=== PATIENT | male | born 1940 | race Caucasian/White ===

== ENCOUNTER → 2016-05-14 | Outpatient (CLI) | payer OTHER | LOC: BHFA 16:00 | PROVIDERS: ATTEND Internal Medicine Cardiovascular Disease | DX: R07.9 Chest pain, unspecified (principal) ==

== ENCOUNTER 2017-02-05 12:08 | Day surgery (SDC) | payer OTHER ==
[2017-02-05] MEDS ORDERED: MIDAZOLAM 2 MG/2 ML VIAL ONE (12:54)
[2017-02-05] MEDS ORDERED: ALBUTEROL 3 ML DEYVIAL ONE (12:54)
[2017-02-05] MEDS ORDERED: LIDOCAINE 1% 300 MG/30 ML SDV ONE (12:54)
[2017-02-05] MEDS ORDERED: fentaNYL 100 MCG/2 ML INJ ONE (12:55)
[2017-02-05] MEDS ORDERED: LIDOCAINE 2% JELLY 5 ML TUBE ONE (12:55)
--- NOTE | 2017-02-05 13:02 | PDPROPOC ---
Sedation Plan of Care Sedation Plan of Care: vital signs stable, mental status noted, patient educated of risks, benefits, alternatives, patient can tolerate sedation ASA Classification: ASA 2 Planned drugs: fentanyl, midazolam Mallampati Score: Class 2 Mallampati Reference Image: Patient passed 3-3-2 rule?: Yes
[2017-02-05 13:03] VITALS: PULSE 67; TEMP 97.3
[2017-02-05] MEDS ORDERED: NS 500 ML IV ONE (13:09)
--- NOTE | 2017-02-05 13:40 | BVPULMO ---
[facility]- Pulmonology Patient Name: Reggie Swann Procedure Date: 02/05/2017 1:27 PM Patient Type: Outpatient Attending MD/ER Physician: Baron Knight MD Procedure: Bronchoscopy Indications: Throat pain Providers: Baron Knight MD Medicines: Lidocaine 4% via nebulizer with Albuterol 2.5 mg, Fentanyl 100 mcg IV, Midazola m 4 mg IV, Lidocaine 1% applied to cords 1 mL, Lidocaine 1% subglottic space 3 mL, Oxygen 5 L/min Complications: No immediate complications. Estimated blood loss: None Procedure: After informed consent, a time out was performed. N95 masks were worn, and the procedure was done in a negative pressure room. The patient was given appropria te topical anesthesia and intravenous sedation. The fiberopic bronchoscope was pas sed via a bite block orally into the larynx and subsequently into the lower trachea bronchial tree. Throughout the procedure, the patient's blood pressure, pulse, and oxygen saturations were monitored continuously. The Bronchoscope (Video) was introduced through the mouth and advanced to the tracheobronchial tree of both lungs. The procedure was accomplished without difficulty. The patient tolerated the procedure well. The total duration of the procedure was 15 minutes. Findings: The oropharynx appears normal. The larynx appears normal. The vocal cords appea r normal. The subglottic space is normal. The trachea is of normal caliber. The c chandler is sharp. The tracheobronchial tree was examined to at least the first subsegme ntal level. Bronchial mucosa and anatomy are normal; there are no endobronchial lesi ons, and no secretions. Post Op Diagnosis: - The examination was normal. - No specimens collected. - The examination was normal. Estimated Blood Loss: Estimated blood loss: none. Recommendation: - Follow up with primary physician in 1-2 weeks. Baron nKight MD Baron Knight MD 02/05/2017 1:39:49 PM This report has been signed electronicallyThomas MD Eugene Number of Addenda: 0 Note Initiated On: 02/05/2017 1:27 PM [email or web address]}
--- NOTE | 2017-02-05 13:40 | BVPULMO ---
[facility]- Pulmonology Patient Name: Reggie Swann Procedure Date: 02/05/2017 1:27 PM Patient Type: Outpatient Attending MD/ER Physician: Baron Knight MD Procedure: Bronchoscopy Indications: Throat pain Providers: Baron Knight MD Medicines: Lidocaine 4% via nebulizer with Albuterol 2.5 mg, Fentanyl 100 mcg IV, Midazola m 4 mg IV, Lidocaine 1% applied to cords 1 mL, Lidocaine 1% subglottic space 3 mL, Oxygen 5 L/min Complications: No immediate complications. Estimated blood loss: None Procedure: After informed consent, a time out was performed. N95 masks were worn, and the procedure was done in a negative pressure room. The patient was given appropria te topical anesthesia and intravenous sedation. The fiberopic bronchoscope was pas sed via a bite block orally into the larynx and subsequently into the lower trachea bronchial tree. Throughout the procedure, the patient's blood pressure, pulse, and oxygen saturations were monitored continuously. The Bronchoscope (Video) was introduced through the mouth and advanced to the tracheobronchial tree of both lungs. The procedure was accomplished without difficulty. The patient tolerated the procedure well. The total duration of the procedure was 15 minutes. Findings: The oropharynx appears normal. The larynx appears normal. The vocal cords appea r normal. The subglottic space is normal. The trachea is of normal caliber. The c chandler is sharp. The tracheobronchial tree was examined to at least the first subsegme ntal level. Bronchial mucosa and anatomy are normal; there are no endobronchial lesi ons, and no secretions. Post Op Diagnosis: - The examination was normal. - No specimens collected. - The examination was normal. Estimated Blood Loss: Estimated blood loss: none. Recommendation: - Follow up with primary physician in 1-2 weeks. Baron Knight MD Baron Knight MD 02/05/2017 1:39:49 PM This report has been signed electronicallyThomas MD Eugene Number of Addenda: 0 Note Initiated On: 02/05/2017 1:27 PM [email or web address]
--- NOTE | 2017-02-05 13:41 | POSTOPPROG ---
Post Op Note Date of Operation: 02/05/17 Surgeon: Baron Knight Anesthesia: IV Sedation Pre-op Diagnosis: Throat pain Post-op Diagnosis: Throat pain Findings: Normal airways and trachea Inf/Abcess present in the surg proc area at time of surgery?: No EBL: Minimal Complications: none
[2017-02-05 15:40] VITALS: BP 115/67; RESP 14; O2SAT 93
== END 2017-02-05 15:21 | disposition home or self-care (01) ==
LOC: FSGY 12:08
PROVIDERS: ATTEND Internal Medicine Pulmonary Disease
PROC: 0BJ08ZZ Inspection of Tracheobronchial Tree, Via Natural or Artificial Opening Endoscopic (ICD-10-PCS; principal; 2017-02-05 13:00)
DX: R07.0 Pain in throat (principal); K22.70 Barrett's esophagus without dysplasia
CPT/HCPCS: J2250; J3010

== ENCOUNTER → 2017-02-26 | Outpatient (CLI) | payer OTHER | LOC: FIMAGING 10:52 | PROVIDERS: ATTEND Family Medicine | DX: M79.604 Pain in right leg (principal); W11.XXXD Fall on and from ladder, subsequent encounter ==

== ENCOUNTER → 2017-03-22 | Outpatient (CLI) | payer OTHER | LOC: BHFA 09:30 | PROVIDERS: ATTEND Internal Medicine Cardiovascular Disease | DX: R94.31 Abnormal electrocardiogram [ECG] [EKG] (principal) | CPT/HCPCS: 78452; 93017; A9500 ==

== ENCOUNTER → 2017-09-02 | Outpatient (CLI) | payer OTHER | LOC: BHFA 14:00 | PROVIDERS: ATTEND Internal Medicine Cardiovascular Disease | DX: R00.2 Palpitations (principal) ==

== ENCOUNTER → 2017-09-03 | Outpatient (CLI) | payer OTHER ==
[~2017-09-03] MED LIST: IOPAMIDOL (ISOVUE 370) 100 ML BTL IV ONE
== END ==
LOC: FIMAGING 12:53
PROVIDERS: ATTEND Internal Medicine Cardiovascular Disease
DX: R00.2 Palpitations (principal); N28.1 Cyst of kidney, acquired
CPT/HCPCS: 71275; 74174; Q9967

== ENCOUNTER → 2017-09-21 | Outpatient (CLI) | payer OTHER | LOC: BHFA 11:00 | PROVIDERS: ATTEND Internal Medicine Cardiovascular Disease | DX: R06.02 Shortness of breath (principal); R00.2 Palpitations; R42 Dizziness and giddiness; R53.83 Other fatigue ==

== ENCOUNTER → 2017-09-23 | Outpatient (CLI) | payer OTHER | LOC: BHFA 16:00 | PROVIDERS: ATTEND Internal Medicine Cardiovascular Disease | DX: R00.2 Palpitations (principal) ==

== ENCOUNTER → 2018-01-14 | Outpatient (CLI) | payer OTHER | LOC: BHFA 13:00 | PROVIDERS: ATTEND Internal Medicine Cardiovascular Disease | DX: I49.3 Ventricular premature depolarization (principal) ==

== ENCOUNTER 2018-02-08 08:42 | Observation (INO) | payer OTHER ==
[2018-02-08] MEDS ORDERED: LR 1,000 ML IV ONE (08:58)
[2018-02-08] MEDS ORDERED: cefOXitin SODIUM 2 GM in NS 100 ML IV ONE (09:42)
--- NOTE | 2018-02-08 09:43 | PDHPUP ---
History & Physical Update H&P update statement: This history and physical update is based on an assessment of the patient which was completed after admission or registration (within 24 hours), but prior to the surgery/procedure. H&P update: H&P reviewed & patient examined, no change in patient's condition since H&P completed
[2018-02-08] MEDS ORDERED: BUPIVACAINE 0.5% 30 ML SDV ONE (09:55)
[2018-02-08] MEDS ORDERED: fentaNYL 100 MCG/2 ML INJ ONE ×2 (10:05→12:53)
[2018-02-08] MEDS ORDERED: PROPOFOL 200 MG/20 ML VIAL ONE (10:05)
--- NOTE | 2018-02-08 10:07 | PDANEPAE ---
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 LT BBB - Pulmonary History Hx COPD: No Hx Asthma/Reactive Airway Disease: No Hx Recent Upper Respiratory Infection: No Hx Oxygen in Use at Home: No Hx Sleep Apnea: Yes Sleep Apnea Screening Result - Last Documented: Positive Pulmonary History Comment: ronna positive UNABLE TO TOLERATE cpap - Neurologic History Hx Cerebrovascular Accident: No Hx Seizures: No Hx Dementia: No Neurologic History Comment: chronic headaches - Endocrine History Hx Diabetes: No - Renal History Hx Renal Disorders: No - Liver History Hx Hepatic Disorders: No - Neurological & Psychiatric Hx Hx Neurological and Psychiatric Disorders: Yes Neurological / Psychiatric History Comment: anxiety. DAILY HEADACHES - Cancer History Hx Cancer: No - Congenital Disorder History Hx Congenital Disorders: No - GI History Hx Gastrointestinal Disorders: Yes Gastrointestinal History Comment: reflux. barretts esophagus - Other Health History Other Health History: CERVICAL STENOSIS. FACTOR V LEIDEN. LYME DX 2007. NEUROPATHY ENTIRE BODY - Chronic Pain History Chronic Pain: Yes (headaches) - Surgical History Prior Surgeries: BRONCHOSCOPY 01/26. cervical spinal leak that was repaired. UNKNOWN 2002 ANE Review of Systems Review of Systems: - Exercise capacity Exercise capacity: >=4 METS METS (RN): 6 METS ANE Patient History - Allergies Allergies/Adverse Reactions: No Known Allergies Allergy (Verified 02/03/17 13:58) - Home Medications Home Medications: DULoxetine [Cymbalta 30 MG (*)] 30 mg PO DAILY 02/03/17 [Last Taken 02/08/18] OLANZapine [ZyPREXA 2.5 mg (*)] 2.5 mg PO HS 02/03/17 [Last Taken 02/07/18] Pregabalin [Lyrica 100mg (*)] 200 mg PO BID 02/03/17 [Last Taken 02/08/18] Acetaminophen [Tylenol 325mg (*)] 650 mg PO Q6 PRN 01/24/18 [Last Taken 02/07/18 ] DULoxetine [Cymbalta 60 MG (*)] 60 mg PO HS 01/24/18 [Last Taken 02/07/18] Rosuvastatin Calcium [Crestor 10mg (RX)] 10 mg PO HS 01/24/18 [Last Taken ] Verapamil ER [Calan SR/ER 180MG (*)] 180 mg PO HS 01/24/18 [Last Taken 02/07/18] clonazePAM [Klonopin (*)] 0.5 mg PO BID PRN 02/08/18 [Last Taken Unknown] - NPO status NPO Status: no food or drink >8 hours NPO Since - Liquids (Date): 02/08/18 NPO Since - Liquids (Time): 07:30 NPO Since - Solids (Date): 02/07/18 NPO Since - Solids (Time): 19:00 - Smoking Hx Smoking Status: Never smoked - Family Anes Hx Family Hx Anesthesia Complications: none ANE Labs/Vital Signs - Vital Signs Blood Pressure: 118/69 Heart Rate: 58 Respiratory Rate: 16 O2 Sat (%): 91 Height: 175.26 cm Weight: 81.647 kg ANE Physical Exam - Airway Neck exam: FROM Mallampati Score: Class 2 Mouth exam: normal dental/mouth exam - Pulmonary Pulmonary: clear to auscultation - Cardiovascular Cardiovascular: regular rate and rhythym - ASA Status ASA Status: II, III
[2018-02-08] MEDS ORDERED: DEXAMETHASONE 4 MG/ML VIAL ONE ×3 (10:38)
[2018-02-08] MEDS ORDERED: LIDOCAINE 2% 2 ML INJ ONE ×2 (10:47)
[2018-02-08] MEDS ORDERED: ROCURONIUM 50 MG/5 ML VIAL ONE (11:25)
[2018-02-08] MEDS ORDERED: PROMETHAZINE HCL 25 MG/ML INJ IVP PRN (11:29)
[2018-02-08] MEDS ORDERED: NALOXONE HCL 0.4 MG/ML INJ IVP PRN (11:29)
[2018-02-08] MEDS ORDERED: ONDANSETRON 4 MG/2 ML VIAL IVP PRN ×2 (11:29→12:06)
[2018-02-08] MEDS ORDERED: LABETALOL HCL 5 MG/ML 20 ML MDV IVP PRN (11:29)
[2018-02-08] MEDS ORDERED: PHENYLEPHRINE HCL 100 MCG/ML SYR ONE (11:34)
[2018-02-08] MEDS ORDERED: ONDANSETRON 4 MG/2 ML VIAL ONE (11:46)
[2018-02-08] MEDS ORDERED: GLYCOPYRROLATE 0.2 MG/1 ML VIAL ONE ×3 (11:50→11:52)
[2018-02-08] MEDS ORDERED: NEOSTIGMINE METHYLSULFATE 5 MG/5 ML SYR ONE (11:50)
--- NOTE | 2018-02-08 12:08 | POSTOPPROG ---
Post Op Note Date of Operation: 02/08/18 Surgeon: Donald Barajas Integration Software Developer: Dr. Lewis Anesthesiologist: Dr. Choudhary Anesthesia: GET(General Endotracheal) Pre-op Diagnosis: GERD Post-op Diagnosis: GERD Procedure: robotic HH repair/fundoplication Inf/Abcess present in the surg proc area at time of surgery?: No EBL: 50-100
[2018-02-08] MEDS ORDERED: SUGAMMADEX SODIUM 200 MG/2 ML VIAL IVP ONE ×3 (12:09→12:46)
[2018-02-08] MEDS: fentaNYL 100 MCG/2 ML INJ IVP PRN ×3 (12:57→13:34)
[2018-02-08] MEDS: OXYCODONE/APAP 5/325 TAB PO PRN ×2 (14:37→20:21)
--- NOTE | 2018-02-09 06:10 | GOP ---
DATE OF OPERATION: 02/08/2018 SURGEON: Andrea Barajas MD GRANULATING MACHINE OPERATOR: Dr. Lewis, whose presence was requested by me and medically necessary for the safe and ti juanjo completion of this case. ANESTHESIA: General endotracheal anesthesia. ANESTHESIOLOGIST: Dr. Choudhary PREOPERATIVE DIAGNOSIS: Gastroesophageal reflux disease with history of King's. POSTOPERATIVE DIAGNOSIS: Gastroesophageal reflux disease with history of King's. PROCEDURE PERFORMED: Robotic hiatal hernia repair and 270 degree fundoplication. FINDINGS: Patient had a 270 degree posterior wrap. No other lesions were identified. ESTIMATED BLOOD LOSS: 50 cc. INDICATIONS: This is a 77-year-old male with a history of reflux. Patient had King's in the past , although his most recent biopsy demonstrated no evidence of King's. Risks and benefits of the p rocedure were discussed the patient, questions were answered and he wished to proceed. DESCRIPTION OF PROCEDURE: The patient was in the supine position initially. After the induction of adequate general endotracheal anesthesia, the patient was moved to the modified lithotomy position. The patient was then prepped and draped in the standard surgical fashion. Marcaine 0.5% was injected throughout the supraumbilical area for local anesthesia. An 8-mm incision was made and the abdominal wall was elevated. A Veress needle was inserted and afte r noting proper pressures, the abdomen was insufflated with carbon dioxide. An 8-mm trocar was place d and a camera followed. There was no apparent damage from trocar placement. Four more ports were p laced, three 8-mm ports in the upper abdomen and one 5-mm port in the right mid abdomen. These were all placed under direct vision after injecting 0.5% Marcaine for local anesthesia. The robot was then docked without difficulty. Robotic instruments were then used to perform the disse ction. The Harmonic scalpel was used to take down the gastrohepatic ligament. Dissection was then c arried over the esophagus exposing the right cinthia. The dissection proceeded laterally and the superi or portion of the esophagus and the left cinthia were exposed. The vagus nerves were seen and preserved throughout the entire case. Next, the posterior window was opened using blunt dissection and the Logan rmonic scalpel. Once this window was achieved, attention was turned to the short gastrics. A significant portion of the short gastric vessels was taken down using a Harmonic scalpel. This tabatha ed up the fundus in its entirety. The mediastinal dissection was then performed. This was carefully performed using blunt dissection and minimal energy component. Once the entire visible portion of t he esophagus was freed and the gastroesophageal junction returned to the abdomen, the repair of the h iatal hernia ensued. Interrupted sutures of 3-0 silk were used to approximate the hiatus posteriorly . Enough room was seen for the esophagus and an instrument tip. The fundus was then brought posteri lucy to the esophagus and the wrap performed. Initial suture took bites of stomach, anterior esophag us, and stomach. Care was taken again to avoid the vagus nerve. Two more sutures of 3-0 silk were u sed to create the wrap inferiorly. This was a loose floppy wrap. No other lesions were identified a t this time. Good hemostasis was noted. The robot was then undocked. Trocars were removed under direct vision. The pneumoperitoneum was all owed to escape. The wounds were thoroughly irrigated. The skin at all sites was closed using 4-0 Mo nocryl in a subcuticular suture. Wounds were sterilely dressed and the patient was returned to the s upine position and extubated. The patient was then taken to the PACU in stable condition. COMPLICATIONS: None. DRAINS: None. COMPLICATIONS: None. DRAINS: None. ADDENDUM: A 270 degree posterior wrap was created. After anchoring the stomach to the diaphragm, connor tures were taken from the stomach to the esophagus on either side anteriorly. Three sutures on each side were used. /[id number]/MODL
[2018-02-09 07:19] VITALS: BP 106/52
[2018-02-09] MEDS: OXYCODONE/APAP 5/325 TAB PO PRN (07:51)
[2018-02-09] MEDS ORDERED: PREGABALIN 100 MG CAP PO ONE (08:45)
--- NOTE | 2018-02-09 08:56 | POSTANESTH ---
Post Anesthetic Evaluation Respiratory Status: Normal, Stable Level of Consciousness/Mental Status: Can Participate in Eval Pain Control: Adequate, Prn Tx Ordered Nausea/Vomiting Control: Adequate, Prn Tx Ordered Complications Possibly Related to Anesthesia: None Noted (This is a late entry for 02/08/18. I was involved with the patient's recovery and assessed him appropriately on that date.)
--- NOTE | 2018-02-09 10:20 | ASMTLACE ---
ABBYE Length of stay for Answers: Less than 1 day current admission Acuity / Level of Answers: No Care: Did the patient have an inpatient admission? Comorbidities - select Answers: Opioid dependence all that apply / Chronic pain Other Notes: Barretts esophagus # of Emergency department Answers: 0 visits in the last 6 months Social determinants Answers: Mental health diagnosis (anxiety, depression, pers onality disorders, etc.) Score: 8 Date Signed: 02/09/2018 10:19 AM Electronically Signed By:Arminda Chew
--- NOTE | 2018-02-09 10:20 | ASMTDCNOTE ---
Case Management Discharge Discharge Order Complete? Answers: Yes Patient to Obtain Answers: via Family Medications Transportation Arranged Answers: Family/Friends Family Notified Answers: Yes Notes: by pt on the phone Discharge Comments Notes: Pt admitted yesterday for Eddie Fundiplication secondary to King's Esophagus. Pt lives independently with Renee. No therapies ordered. Pt comfortable discharging independently. No CM needs noted at this time. Date Signed: 02/09/2018 10:19 AM Electronically Signed By:Arminda Chew
--- NOTE | 2018-02-09 10:34 | ASDISCHSUM ---
Discharge Information Plan Status:Home with No Needs Medically Cleared to Leave:02/09/2018 Discharge Date:02/09/2018 CM D/C Disposition:Home, Routine, Self-Care ADT D/C Disposition:Home, Routine, Self-Care Projected Discharge Date:02/09/2018 Transportation at D/C:Family Discharge Delay Reason: Follow-Up Date:02/09/2018 Discharge Slot: Final Diagnosis:Barretts Esophagus Placement Information Patient Contact Information Contact Name:MARTHA Relationship: Address:[place] City:[place] Alternate Phone: [facility]/Zip Code:[place] [address] Email: Financial Information Financial Class:Medicare Primary Plan Desc:MEDICARE OUTPATIENT Primary Plan Number:[id number] Secondary Plan Desc:[facility] Secondary Plan Number:[id number] Assessment Information LACE LACE Length of stay for Answers: Less than 1 day current admission Acuity / Level of Answers: No Care: Did the patient have an inpatient admission? Comorbidities - select Answers: Opioid dependence all that apply / Chronic pain Other Notes: Tatum pal # of Emergency department Answers: 0 visits in the last 6 months Social determinants Answers: Mental health diagnosis (anxiety, depression, pers onality disorders, etc.) Score: 8 Date Signed: 02/09/2018 10:19 AM Electronically Signed By:Arminda Chew Case Management Discharge Plan Note Case Management Discharge Discharge Order Complete? Answers: Yes Patient to Obtain Answers: via Family Medications Transportation Arranged Answers: Family/Friends Family Notified Answers: Yes Notes: by pt on the phone Discharge Comments Notes: Pt admitted yesterday for Eddie Fundiplication secondary to Fernando's Esophagus. Pt lives independently with Renee. No therapies ordered. Pt comfortable discharging independently. No CM needs noted at this time. Date Signed: 02/09/2018 10:19 AM Electronically Signed By:Arminda Chew Intervention Information
--- NOTE | 2018-02-09 10:36 | SOAPPROG ---
SOAP Progress Note Assessment/Plan: Assessment: s/p fundoplication, doing well. Plan d/c. Plan: 02/09/18 10:35 Subjective: Patient c/o back pain. Denies N/V, heike po. Objective: Vital Signs Temp Pulse Resp BP Pulse Ox 37.1 C 67 16 106/52 L 92 02/09/18 07:17 02/09/18 07:17 02/09/18 07:17 02/09/18 07:17 02/09/18 07:17 02/08/18 02/09/18 02/10/18 05:59 05:59 05:59 Intake Total 2670 350 Output Total 360 Balance 2310 350 Alert, NAD RRR Abd soft, [employer] C/D/I ICD10 Worksheet Patient Problems: Problems Problem Status Onset GERD (gastroesophageal reflux disease) Acute - ICD10 Problem Qualifiers (1) GERD (gastroesophageal reflux disease)
== END 2018-02-09 11:00 | disposition home or self-care (01) ==
LOC: F3N 08:42 → F3E 14:01
PROVIDERS: ADMIT Family Medicine; ATTEND Surgery
DX: K21.9 Gastro-esophageal reflux disease without esophagitis (principal); K22.70 Barrett's esophagus without dysplasia; E78.5 Hyperlipidemia, unspecified; I49.3 Ventricular premature depolarization; D68.51 Activated protein C resistance; G47.33 Obstructive sleep apnea (adult) (pediatric); Z86.19 Personal history of other infectious and parasitic diseases
CPT/HCPCS: 43280; J0694; J1100; J2370; J2405; J2704; J3010; J2710

== ENCOUNTER 2018-02-14 13:07 | Emergency (ER) | payer OTHER ==
--- NOTE | 2018-02-14 13:37 | EDPHY ---
H & P Stated Complaint: constipation/states no stool in 3 weeks/abd pain Time Seen by Provider: 02/14/18 13:36 HPI/ROS: HPI: This is a 77-year-old male who presents with Chief Complaint: constipation/states no stool in 3 weeks/abd pain Location: GI Quality: No bowel movement Duration: 3 weeks Signs and Symptoms: no fever, no nausea, no vomiting, no hematemesis, no blood in stool, + abdominal bloating, no diarrhea, no back pain, no urinary symptoms, no testicular/groin pain, no indigestion, no chest pain, no shortness of breath Timing: Worsening Severity: Moderate Context: Patient reports that he has not had a bowel movement in 3 weeks accompanied by abdominal bloating and generalized abdominal pain. Last week he had a procedure to "repair his sphincter" secondary to King's esophagus by Dr. Barajas. He had been taking Percocet recently. Denies passing flatus, nausea, vomiting, urinary symptoms, back pain. He reports that he is still eating and drinking without any difficulty. Abdominal pain is mild in nature. Described as cramping like. Modifying Factors: None Comment: ROS: A comprehensive 10 system review of systems is otherwise negative aside from elements mentioned in the history of present illness. MEDICAL/SURGICAL/SOCIAL HISTORY: Medical history: King's Esophagus, Lyme Disease (2006), chronic headaches, Factor V Leiden, cervical stenosis, neuropathy generalized, Left bundle branch block and PVCs, TOAN - no CPAP; Surgical history: Denies Social history: Nonsmoker. Family history noncontributory. CONSTITUTIONAL: Polite and cooperative, elderly white male, awake and alert, no obvious distress HEENT: Atraumatic and normocephalic, PERRL, EOMI. Nares patent; no rhinorrhea; no nasal mucosal edema. Tympanic membranes clear. Oropharynx clear, no exudate and moist pink mucosa. Airway patent. No lymphadenopathy. No meningismus. Cardiovascular: Normal S1/S2, regular rate, regular rhythm, without murmur rub or gallop. PULMONARY/CHEST: Symmetrical and nontender. Clear to auscultation bilaterally. Good air movement. No accessory muscle usage. ABDOMEN: Soft, distended, mild generalized tenderness, no rebound, no guarding , no peritoneal signs, no masses or organomegaly. No CVAT. Hypoactive bowel sounds heard x4. EXTREMITIES: 2/2 pulses, strength 5/5, no deformities, no clubbing, no cyanosis or edema. NEUROLOGICAL: no focal neuro deficits. GCS 15. SKIN: Warm and dry, no erythema. no rash. Good capillary refill. Source: Patient Exam Limitations: No limitations - Personal History Current Tetanus Diphtheria and Acellular Pertussis (TDAP): Yes - Medical/Surgical History Hx Asthma: No Hx Chronic Respiratory Disease: No Hx Diabetes: No Hx Cardiac Disease: No Hx Renal Disease: No Hx Cirrhosis: No Hx Alcoholism: No Hx HIV/AIDS: No Hx Splenectomy or Spleen Trauma: No Other PMH: King's Esophagus, Lyme Disease (2005), chronic headaches, Factor V Leiden, cervical stenosis, neuropathy generalized, Left bundle branch block and PVCs, TOAN - no CPAP; - Social History Smoking Status: Never smoked Constitutional: Initial Vital Signs Temperature (C) 36.7 C 02/14/18 13:11 Heart Rate 77 02/14/18 13:11 Respiratory Rate 17 02/14/18 13:11 Blood Pressure 116/72 02/14/18 13:11 O2 Sat (%) 95 02/14/18 13:11 O2 Delivery Mode Room Air Allergies/Adverse Reactions: No Known Allergies Allergy (Verified 02/14/18 13:10) Home Medications: Medication Instructions Recorded DULoxetine [Cymbalta 30 MG (*)] 30 mg PO DAILY 02/03/17 OLANZapine [ZyPREXA 2.5 mg (*)] 2.5 mg PO HS 02/03/17 Pregabalin [Lyrica 100mg (*)] 200 mg PO BID 02/03/17 Acetaminophen [Tylenol 325mg (*)] 650 mg PO Q6 PRN 01/24/18 DULoxetine [Cymbalta 60 MG (*)] 60 mg PO HS 01/24/18 Rosuvastatin Calcium [Crestor] 10 mg PO HS 01/24/18 Verapamil ER [Calan SR/ER 180MG 180 mg PO HS 01/24/18 (*)] clonazePAM [Klonopin (*)] 0.5 mg PO BID PRN 02/08/18 Medical Decision Making ED Course/Re-evaluation: Vital signs reviewed and stable upon arrival. IV access and laboratory studies obtain. CT abdomen and pelvis scan ordered Given 1 L normal saline 1428: Labs reviewed. No signs of leukocytosis/anemia/platelet dysfunction/OSVALDO/ elevated LFTs/electrolyte imbalance/pancreatitis. Creatinine is 1.1 1500: Called by radiologist Dr. Bean, who advised that CT abdomen and pelvis scan shows constipation, sigmoid diverticulosis but no diverticulitis, no bowel obstruction, the recent surgery shows partial wrap of the fundus and stable, kidney lesions noted as recommended repeat renal ultrasound. Given magnesium citrate and a bowel regimen to treat constipation. This patient was seen under the supervision of my secondary supervising physician. I evaluated care for this patient independently. Discussed this patient with Dr. Portillo. Differential Diagnosis: Abdominal pain including but not limited to appendicitis, cholecystitis, gastritis and urinary tract infection. - Data Points Laboratory Results: Laboratory Results 02/14/18 14:00 02/14/18 14:00 02/14/18 02/14/18 02/14/18 14:12 14:00 14:00 WBC 7.00 10^3/uL 10^3/uL (3.80-9.50) RBC 4.96 10^6/uL 10^6/uL (4.40-6.38) Hgb 15.4 g/dL g/dL (13.7-17.5) POC Hgb 15.6 gm/dL gm/dL (13.7-17.5) Hct 45.1 % % (40.0-51.0) POC Hct 46 % % (40-51) MCV 90.9 fL fL (81.5-99.8) MCH 31.0 pg pg (27.9-34.1) MCHC 34.1 g/dL g/dL (32.4-36.7) RDW 13.3 % % (11.5-15.2) Plt Count 178 10^3/uL 10^3/uL (150-400) MPV 12.6 fL H fL (8.7-11.7) Neut % (Auto) 69.6 % % (39.3-74.2) Lymph % (Auto) 16.9 % % (15.0-45.0) [place] % (Auto) 10.4 % % (4.5-13.0) Eos % (Auto) 2.4 % % (0.6-7.6) Baso % (Auto) 0.3 % % (0.3-1.7) Nucleat RBC Rel Count 0.0 % % (0.0-0.2) Absolute Neuts (auto) 4.87 10^3/uL 10^3/uL (1.70-6.50) Absolute Lymphs (auto) 1.18 10^3/uL 10^3/uL (1.00-3.00) Absolute Monos (auto) 0.73 10^3/uL 10^3/uL (0.30-0.80) Absolute Eos (auto) 0.17 10^3/uL 10^3/uL (0.03-0.40) Absolute Basos (auto) 0.02 10^3/uL 10^3/uL (0.02-0.10) Absolute Nucleated RBC 0.00 10^3/uL 10^3/uL (0-0.01) Immature Gran % 0.4 % % (0.0-1.1) Immature Gran # 0.03 10^3/uL 10^3/uL (0.00-0.10) POC Sodium 139 mEq/L mEq/L (135-145) Sodium REJ POC Potassium 4.6 mEq/L mEq/L (3.3-5.0) Potassium TNP POC Chloride 104 mEq/L mEq/L (97-110) Chloride TNP Carbon Dioxide TNP Anion Gap TNP POC BUN 34 mg/dL H mg/dL (7-23) BUN TNP Creatinine TNP POC Creatinine 1.1 mg/dL mg/dL (0.7-1.3) Estimated GFR TNP Glucose TNP POC Glucose 97 mg/dL mg/dL (70-100) Calcium TNP Total Bilirubin TNP Conjugated Bilirubin TNP Unconjugated Bilirubin TNP AST TNP ALT TNP Alkaline Phosphatase TNP Total Protein REJ Albumin TNP Lipase REJ Medications Given: Discontinued Medications Sodium Chloride (Ns) 1,000 mls @ 0 mls/hr IV EDNOW ONE; Wide Open PRN Reason: Protocol Stop: 02/14/18 13:42 Last Admin: 02/14/18 13:57 Dose: 1,000 mls Magnesium Citrate (Magnesium Citrate) 150 ml PO ONCE ONE Stop: 02/14/18 15:18 Last Admin: 02/14/18 15:30 Dose: 150 ml Point of Care Test Results: Chemistry 02/14/18 14:12 POC Sodium 139 mEq/L mEq/L (135-145) POC Potassium 4.6 mEq/L mEq/L (3.3-5.0) POC Chloride 104 mEq/L mEq/L (97-110) POC BUN 34 mg/dL H mg/dL (7-23) POC Creatinine 1.1 mg/dL mg/dL (0.7-1.3) POC Glucose 97 mg/dL mg/dL (70-100) ISTAT H&H 02/14/18 14:12 POC Hgb 15.6 gm/dL gm/dL (13.7-17.5) POC Hct 46 % % (40-51) Departure - Departure Disposition: Home, Routine, Self-Care Clinical Impression: Constipation by delayed colonic transit, Kidney lesion Condition: Good Instructions: Laxative, Stool Softeners (By mouth), Polyethylene Glycol 3350 ( By mouth), Kidney Ultrasound (ED), Kidney Cyst (ED) Additional Instructions: Please take 150 mL of magnesium citrate now. If no bowel movement in 4-6 hours , take the other 150 mL of magnesium citrate. Take MiraLax daily as needed for constipation. Take Colace stool softeners twice a day until having normal bowel movements. Consume a minimum of 8-10 glasses of water or electrolyte fluid replacement drinks that include Gatorade, Powerade, Pedialyte. Eat a bland diet for the next 48 hours and then slowly advance as tolerated. If no bowel movement in the next 3 days, follow-up with primary care provider. CT scan today showed lesions on your kidney. It is recommended that you have a follow-up renal ultrasound performed outpatient to further differentiate. Referrals: Debi Buckner MD [Primary Care Provider] - As per Instructions
[2018-02-14] MEDS ORDERED: NS 1,000 ML IV ONE (13:41)
[2018-02-14 14:11] LABS: PLATELET COUNT 178 10^3/uL (150-400)
[2018-02-14] MEDS ORDERED: IOPAMIDOL (ISOVUE-300) 100 ML BTL ONE (14:21)
[2018-02-14] MEDS ORDERED: MAGNESIUM CITRATE 300 ML BOTTLE PO ONE (15:17)
[2018-02-14 15:36] VITALS: BP 107/68
== END 2018-02-14 15:36 | disposition home or self-care (01) ==
DX: K59.01 Slow transit constipation (principal); N28.9 Disorder of kidney and ureter, unspecified; E86.9 Volume depletion, unspecified
CPT/HCPCS: 74177; 96360; 99285; Q9967; 82435-PO; 82565-PO; 82947-PO; 84132-PO; 84295-PO; 84520-PO; 85014-PO

== ENCOUNTER 2018-04-09 10:57 | Day surgery (SDC) | payer OTHER ==
--- NOTE | 2018-04-09 11:20 | EDPHY ---
HPI/HX/ROS/PE/MDM Narrative: CHIEF COMPLAINT: Sensation of esophageal foreign body HPI: The patient is a 77 y/o male with a history of King's esophagus post fundoplication 2 months ago who complains of the sensation of meat stuck in his throat since last night. He has been unable to drink water without vomiting since last night. He reports several similar episodes since his surgery with Dr. Barajas on 02/08/18 that have resolved without intervention. He has never seen GI for these symptoms. He is not drooling and denies difficulty breathing, fever, or any other symptoms. REVIEW OF SYSTEMS: A comprehensive 10 system review of systems is otherwise negative aside from elements mentioned in the history of present illness. PMH: King's esophagus post fundoplication with Dr. Barajas 02/08/18; GERD SOCIAL HISTORY: Lives in [place]. . Retired. PHYSICAL EXAM: General:Patient is alert, in no acute distress. ENT:Eyes are normal to inspection. ENT inspection normal. Neck: Normal inspection. Full range of motion. Respiratory:No respiratory distress. Breath sounds normal bilaterally. Cardiovascular: Regular rate and rhythm. Strong peripheral pulses. Normal cap refill. Abdomen:The abdomen is nontender to palpation. There are no peritoneal signs. Back: Normal to inspection. No tenderness to palpation. Skin: Normal color. No rash. Warm and dry. Extremities: Normal appearance. Full range of motion. Neuro: Oriented x3. Normal motor function. Normal sensory function. ED Course: Consulted with Dr. Mishra, GI. He will perform endoscopy. MDM: This patient presents with impacted esophageal food bolus, likely related to history of recent fundoplication. He will required endoscopy for removal. No signs of airway compromise or infection. - Data Points Laboratory Results: Laboratory Results 04/09/18 11:45 04/09/18 04/09/18 11:45 11:45 WBC 5.18 10^3/uL 10^3/uL (3.80-9.50) RBC 4.89 10^6/uL 10^6/uL (4.40-6.38) Hgb 15.3 g/dL g/dL (13.7-17.5) Hct 45.8 % % (40.0-51.0) MCV 93.7 fL fL (81.5-99.8) MCH 31.3 pg pg (27.9-34.1) MCHC 33.4 g/dL g/dL (32.4-36.7) RDW 14.6 % % (11.5-15.2) Plt Count 122 10^3/uL L 10^3/uL (150-400) MPV 13.0 fL H fL (8.7-11.7) Neut % (Auto) 59.4 % % (39.3-74.2) Lymph % (Auto) 24.5 % % (15.0-45.0) [place] % (Auto) 11.4 % % (4.5-13.0) Eos % (Auto) 4.1 % % (0.6-7.6) Baso % (Auto) 0.4 % % (0.3-1.7) Nucleat RBC Rel Count 0.0 % % (0.0-0.2) Absolute Neuts (auto) 3.08 10^3/uL 10^3/uL (1.70-6.50) Absolute Lymphs (auto) 1.27 10^3/uL 10^3/uL (1.00-3.00) Absolute Monos (auto) 0.59 10^3/uL 10^3/uL (0.30-0.80) Absolute Eos (auto) 0.21 10^3/uL 10^3/uL (0.03-0.40) Absolute Basos (auto) 0.02 10^3/uL 10^3/uL (0.02-0.10) Absolute Nucleated RBC 0.00 10^3/uL 10^3/uL (0-0.01) Immature Gran % 0.2 % % (0.0-1.1) Immature Gran # 0.01 10^3/uL 10^3/uL (0.00-0.10) Sodium Pending Potassium Pending Chloride Pending Carbon Dioxide Pending Anion Gap Pending BUN Pending Creatinine Pending Estimated GFR Pending Glucose Pending Calcium Pending General Time Seen by Provider: 04/09/18 11:17 Initial Vital Signs: Initial Vital Signs Temperature (C) 36 C 04/09/18 11:18 Heart Rate 54 L 04/09/18 11:18 Respiratory Rate 16 04/09/18 11:18 Blood Pressure 145/92 H 04/09/18 11:18 O2 Sat (%) 95 04/09/18 11:18 O2 Delivery Mode Nasal Cannula O2 (L/minute) 5 Allergies/Adverse Reactions: No Known Allergies Allergy (Verified 02/14/18 13:10) Home Medications: Medication Instructions Recorded DULoxetine [Cymbalta 30 MG (*)] 30 mg PO DAILY 02/03/17 OLANZapine [ZyPREXA 2.5 mg (*)] 2.5 mg PO HS 02/03/17 Pregabalin [Lyrica 100mg (*)] 200 mg PO BID 02/03/17 Acetaminophen [Tylenol 325mg (*)] 650 mg PO Q6 PRN 01/24/18 DULoxetine [Cymbalta 60 MG (*)] 60 mg PO HS 01/24/18 Rosuvastatin Calcium [Crestor] 10 mg PO HS 01/24/18 Verapamil ER [Calan SR/ER 180MG 180 mg PO HS 01/24/18 (*)] clonazePAM [Klonopin (*)] 0.5 mg PO BID PRN 02/08/18 Departure - Departure Disposition: To OP Cath/Surgery Condition: Good Report Scribed for: Blake Portillo Report Scribed by: Elisa Zaldivar Date of Report: 04/09/18 Time of Report: 11:25 Physician Review and Approval Statement: Portions of this note were transcribed by an ED scribe. I personally performed the history, physical exam, and medical decision making; and confirm the accuracy of the information in the transcribed note.
[2018-04-09 11:53] LABS: PLATELET COUNT 122 10^3/uL (150-400)
[2018-04-09] MEDS ORDERED: MIDAZOLAM 2 MG/2 ML VIAL ONE (13:45)
[2018-04-09] MEDS ORDERED: fentaNYL 100 MCG/2 ML INJ ONE (13:45)
--- NOTE | 2018-04-09 14:06 | GIREPORT ---
[facility] Surgical Services - Endoscopy Department Patient Name: Reggie Swann Procedure Date: 04/09/2018 1:38 PM Patient Type: Emergency Department Attending MD/ ER Physician: Jone Cee MD Procedure: Upper GI endoscopy Indications: Foreign body in the esophagus Providers: Jone Cee MD Medicines: Fentanyl 150 micrograms IV, Midazolam 6 mg IV Complications: No immediate complications. Description of Procedure: After obtaining informed consent, the endoscope was passed under direct vision. Throughout the procedure, the patient's blood pressure, pulse, and oxygen saturations were monitored continuously. The Endoscope was intro duced through the mouth, and advanced to the third part of duodenum. The uppe r GI endoscopy was accomplished without difficulty. The patient tolerated th e procedure well. Findings: Food was found in the middle third of the esophagus and in the lower th ird of the esophagus. Removal of food was accomplished. Evidence of a Eddie fundoplication was found in the cardia. The wrap appeared intact. This was traversed. The entire examined stomach was normal. The examined duodenum was normal. Estimated Blood Loss: Estimated blood loss: none. Post Op Diagnosis: - Food in the middle third of the esophagus and in the lower third of t he esophagus. Removal was successful. - A Eddie fundoplication was found. The wrap appears intact. - Normal stomach. - Normal examined duodenum. Recommendation: - Written discharge instructions were provided to the patient. - The signs and symptoms of potential delayed complications were discus sed with the patient. - Patient has a contact number available for emergencies. - Return to normal activities tomorrow. - Resume previous diet. - Repeat upper endoscopy in 4 weeks for surveillance/dilation. Attending Participation: I personally performed the entire procedure. Jone Cee MD Jone Cee MD 04/09/2018 2:06:04 PM This report has been signed electronicallyDaus Coleman MD Number of Addenda: 0 Note Initiated On: 04/09/2018 1:38 PM [email or web address]
[2018-04-09 15:12] VITALS: BP 116/75
--- NOTE | 2018-04-09 17:05 | GCON ---
OUTPATIENT CONSULTATION NOTE REFERRING PHYSICIAN: Dr. Portillo REASON FOR CONSULTATION: Food impaction. Briefly, the patient is a pleasant 77-year-old male, who presented to the emergency room with the inability to swallow. He reports this began after his evening meal the night prior. He is able to rest through the evening but has been unable to tolerate his medications or secretions. Of note, he underwent Eddie fundoplication approximately 2 months ago. This was done in the setting of heartburn complicated by King's esophagus. He reports no nausea or vomiting. He has had no heartburn or indigestion. He reports no abdominal pain or weight loss. He has not had prior episodes of food impaction like this but does admit to previous episodes of difficulty swallowing. He does not recall undergoing any manometric or other evaluation prior to surgery but admits that he may not remember those details well. ALLERGIES: None. OUTPATIENT MEDICATIONS: Include Cymbalta, Zyprexa, Lyrica, Tylenol, calcium, Klonopin, and verapamil. FAMILY HISTORY: no history of stomach cancer SOCIAL HISTORY: He lives in [place]. He is and retired. He does not smoke cigarettes. PAST MEDICAL HISTORY: Includes King's esophagus with fundoplication. COMPLETE 10-SYSTEM REVIEW: Undertaken and is negative except for the positives and negatives detailed in the History of Present Illness. PHYSICAL EXAM: GENERAL: This is a well-developed male in no apparent distress. HEENT: His pupils are equal, round, reactive to light and accommodation. His sclerae are nonicteric. His oropharynx is clear. NECK: Supple without lymphadenopathy. HEART: Regular without murmur. ABDOMEN: Soft , nontender with normoactive bowel sounds. EXTREMITIES: Free of cyanosis, clubbing, and edema. NEURO: Grossly nonfocal. JOINTS: Show no arthritis. SKIN: Warm and dry without lesions. LABORATORY TESTING: Shows a white count of 5.1, hemoglobin of 15.3, hematocrit of 45.8, platelet count of 122. IMPRESSION/RECOMMENDATIONS: The patient has had food impaction for the last almost 18 hours. This has not resolved spontaneously. We will need to perform upper endoscopy to deliver the food impaction. Pending the results of endoscopy , may benefit from subsequent followup endoscopy to assess King's and/or stricture. Esophageal dilation may be useful in the future as well. /[id number]/MODL MTDD
== END 2018-04-09 15:40 | disposition home or self-care (01) ==
LOC: FSGY 13:31
PROVIDERS: ATTEND Internal Medicine Gastroenterology
PROC: 0DC38ZZ Extirpation of Matter from Lower Esophagus, Via Natural or Artificial Opening Endoscopic (ICD-10-PCS; principal; 2018-04-09 13:30)
PROC: 0DC28ZZ Extirpation of Matter from Middle Esophagus, Via Natural or Artificial Opening Endoscopic (ICD-10-PCS; principal; 2018-04-09 13:30)
DX: T18.128A Food in esophagus causing other injury, initial encounter (principal); K22.70 Barrett's esophagus without dysplasia; Z98.890 Other specified postprocedural states
CPT/HCPCS: J2250; J3010

== ENCOUNTER → 2018-04-20 | Outpatient (CLI) | payer OTHER | LOC: BHFA 09:05 | PROVIDERS: ATTEND Internal Medicine Cardiovascular Disease | DX: I49.3 Ventricular premature depolarization (principal) ==

== ENCOUNTER 2018-06-08 11:10 | Observation (INO) | payer OTHER ==
[2018-06-08] MEDS ORDERED: diphenhydrAMINE 25 MG CAP PO ONE (11:35)
[2018-06-08] MEDS ORDERED: DIAZEPAM 5 MG TAB PO ONE (11:35)
[2018-06-08] MEDS ORDERED: FAMOTIDINE 20 MG TAB PO ONE (11:35)
[2018-06-08] MEDS ORDERED: ASPIRIN EC 325 MG TAB PO ONE (11:35)
[2018-06-08] MEDS ORDERED: NS 1,000 ML IV ONE ×2 (11:35)
--- NOTE | 2018-06-08 11:55 | PDGENHP ---
History & Physical Chief Complaint: soa, cp, palpitations Relevant Physical Exam: s1s2 irreg cta ao3 Cardiorespiratory Assessment: for cor angio and pvc ablation
--- NOTE | 2018-06-08 13:10 | PDANEPAE ---
ANE History of Present Illness CAD, PVC ANE Past Medical History - Cardiovascular History Hx Hypertension: No Hx Arrhythmias: Yes Hx Chest Pain: No Hx Coronary Artery / Peripheral Vascular Disease: Yes Hx CHF / Valvular Disease: No Hx Palpitations: Yes Cardiovascular History Comment: PVC'S/PAC'S. LT BBB - Pulmonary History Hx COPD: No Hx Asthma/Reactive Airway Disease: No Hx Recent Upper Respiratory Infection: No Hx Oxygen in Use at Home: No Hx Sleep Apnea: Yes Pulmonary History Comment: ronna positive UNABLE TO TOLERATE cpap - Neurologic History Hx Cerebrovascular Accident: No Hx Seizures: No Hx Dementia: No Neurologic History Comment: chronic headaches - Endocrine History Hx Diabetes: No Hypothyroid: No Hyperthyroid: No Obesity: no - Renal History Hx Renal Disorders: No - Liver History Hx Hepatic Disorders: No - Neurological & Psychiatric Hx Hx Neurological and Psychiatric Disorders: Yes Neurological / Psychiatric History Comment: anxiety. DAILY HEADACHES - Cancer History Hx Cancer: No - Congenital Disorder History Hx Congenital Disorders: No - GI History GERD: moderate Hx Gastrointestinal Disorders: Yes Gastrointestinal History Comment: reflux. barretts esophagus - Other Health History Other Health History: CERVICAL STENOSIS. FACTOR V LEIDEN. LYME DX 2007. NEUROPATHY ENTIRE BODY - Chronic Pain History Chronic Pain: Yes (headaches) - Surgical History Prior Surgeries: BRONCHOSCOPY 01/26. cervical spinal leak that was repaired. UNKNOWN 2002 ANE Review of Systems Review of systems is: negative Review of Systems: ANE Patient History - Allergies Allergies/Adverse Reactions: No Known Allergies Allergy (Verified 02/14/18 13:10) - Home Medications Home medications: home medication list seen and reviewed Home Medications: OLANZapine [ZyPREXA 2.5 mg (*)] 1.25 - 2.5 mg PO HS 02/03/17 [Last Taken 21:00] Pregabalin [Lyrica 100mg (*)] 100 mg PO HS 02/03/17 [Last Taken 06/07/18 21:00] DULoxetine [Cymbalta 60 MG (*)] 60 mg PO BID 01/24/18 [Last Taken 06/08/18 05:00 ] Rosuvastatin Calcium [Crestor] 10 mg PO HS 01/24/18 [Last Taken 06/07/18 21:00] clonazePAM [Klonopin (*)] 0.5 mg PO BID PRN 02/08/18 [Last Taken 06/07/18 12:00] Herbals/Supplements -Info Only 1 ea PO DAILY 06/01/18 [Last Taken 06/08/18 05:00 ] Pregabalin [Lyrica 100mg (*)] 200 mg PO DAILY 06/01/18 [Last Taken 06/08/18 05: 00] Buprenorphine [Butrans 20 mcg/hr] 1 each TD GUILLORY 06/08/18 [Last Taken 06/05/18 08: 00] - NPO status NPO Status: no food or drink >8 hours - Anes Hx Anes Hx: no prior problems - Smoking Hx Smoking Status: Never smoked Marijuana use: No - Alcohol Use Alcohol Use: None - Family Anes Hx Family Anes Hx: none Family Hx Anesthesia Complications: none ANE Labs/Vital Signs - Labs Result Diagrams: 06/08/18 13:05 06/08/18 13:05 ANE Physical Exam - Airway Neck exam: FROM Mallampati Score: Class 2 Mouth exam: normal dental/mouth exam - Pulmonary Pulmonary: no respiratory distress, clear to auscultation - Cardiovascular Cardiovascular: irregularly irregular - ASA Status ASA Status: III ANE Anesthesia Plan Anesthesia Plan: GA with mask Total IV Anesthesia: Yes
[2018-06-08 13:25] LABS: PLATELET COUNT 152 10^3/uL (150-400)
[2018-06-08 13:51] LABS: INR 0.95 (0.83-1.16); PROTIME(PATIENT) 12.3 SEC (12.0-15.0)
[2018-06-08] MEDS ORDERED: BUPIVACAINE 0.75% 10 ML SDV ONE (15:58)
[2018-06-08] MEDS ORDERED: IOHEXOL 350mgI/ML (OMNIPAQUE) 150 ML BTL IV ONE (15:58)
[2018-06-08] MEDS ORDERED: LIDOCAINE 1% 300 MG/30 ML SDV ONE (15:58)
[2018-06-08] MEDS ORDERED: IOPAMIDOL (ISOVUE-300) 100 ML BTL ONE (16:04)
[2018-06-08] MEDS ORDERED: MIDAZOLAM 2 MG/2 ML VIAL IVP ONE (16:05)
[2018-06-08] MEDS ORDERED: PROPOFOL/EMULSION 500 MG/50 ML BOTTLE IV ONE (16:19)
[2018-06-08] MEDS ORDERED: LIDOCAINE 2% 5 ML SDV ONE (16:20)
[2018-06-08] MEDS ORDERED: MIDAZOLAM 2 MG/2 ML VIAL ONE (16:23)
[2018-06-08] MEDS ORDERED: fentaNYL 100 MCG/2 ML INJ ONE (16:23)
--- NOTE | 2018-06-08 17:05 | PDDXCAT ---
Diagnostic Cath Note - . Date: 06/08/18 Intensivist: Santy Indication: Patient w angina/susp CAD, cannot be risk stratified by other means , Class I/II angina, intolerance to med therapy or failure to respond (PVC, chest pain, dyspnea, palpitations, fatigue) - Procedure Access: right groin Procedure: left heart catheterization - Materials Left Heart Cath size: 6F Left Heart Cath materials: JL4.0, JR4.0 - Findings-Left Heart Catheterization LM: Normal LAD: Mild prox and mid disease. 1 principal diagonal LCX: Non dominant, normal RCA: Dominant. Moderate (40%) proximal. Diffuse mild mid disease Ramus: Mild proximal disease - Findings-Right Heart Catheterization AO: 96/62 mmHg, LVEDP 6 mmHg Complications: None Estimated blood loss: <50ml Closure method: Angioseal Assessment: Mild nonobstructive CAD Plan: Plan PVC ablation in2 weeks Intervention: None Patient Problems: Problems Problem Status Onset PVC (premature ventricular contraction) Acute GERD (gastroesophageal reflux disease) Acute
[2018-06-08] MEDS ORDERED: NALOXONE HCL 0.4 MG/ML INJ IVP PRN (17:17)
--- NOTE | 2018-06-08 17:17 | POSTANESTH ---
Post Anesthetic Evaluation Cardiovascular Status: Normal, Stable Respiratory Status: Normal, Stable Level of Consciousness/Mental Status: Can Participate in Eval Pain Control: Adequate, Prn Tx Ordered Nausea/Vomiting Control: Adequate, Prn Tx Ordered Complications Possibly Related to Anesthesia: None Noted
[2018-06-08] MEDS ORDERED: clonazePAM 0.5 MG TAB PO PRN (19:24)
[2018-06-08] MEDS ORDERED: diphenhydrAMINE 25 MG CAP PO PRN (20:07)
[2018-06-08] MEDS ORDERED: OLANZapine 2.5 MG TAB PO SCH (21:00)
[2018-06-08] MEDS ORDERED: PREGABALIN 100 MG CAP PO SCH (21:00)
[2018-06-08] MEDS ORDERED: ROSUVASTATIN CALCIUM 10 MG TAB PO SCH (21:00)
[2018-06-08] MEDS: DULoxetine 60 MG CAP PO SCH (21:34)
[2018-06-09] MEDS: DULoxetine 60 MG CAP PO SCH (08:52)
[2018-06-09] MEDS ORDERED: Herbals/Supplements -Info Only PO SCH (09:00)
[2018-06-09] MEDS ORDERED: PREGABALIN 100 MG CAP PO SCH (09:00)
--- NOTE | 2018-06-09 09:31 | ASDISCHSUM ---
Discharge Information Plan Status:Home with No Needs Medically Cleared to Leave:06/08/2018 Discharge Date:06/08/2018 CM D/C Disposition:Home, Routine, Self-Care ADT D/C Disposition:Home, Routine, Self-Care Projected Discharge Date:06/08/2018 Transportation at D/C:Family Discharge Delay Reason: Follow-Up Date:06/08/2018 Discharge Slot: Final Diagnosis: Placement Information Patient Contact Information Contact Name:MARTHA Relationship: Address:[address] City:[place] Alternate Phone: [facility]/Zip Code:[place] [address] Email: Financial Information Financial Class:Medicare Primary Plan Desc:MEDICARE OUTPATIENT Primary Plan Number:[id number] Secondary Plan Desc:[employer] Secondary Plan Number:[id number] Assessment Information LACE LACE Length of stay for Answers: Less than 1 day current admission Acuity / Level of Answers: No Care: Did the patient have an inpatient admission? Comorbidities - select Answers: Coronary Artery Disease all that apply Opioid dependence / Chronic pain Other Notes: Factor V Leiden # of Emergency department Answers: 1-2 visits in the last 6 months Social determinants Answers: Mental health diagnosis (anxiety, depression, pers onality disorders, etc.) Score: 11 Date Signed: 06/09/2018 09:30 AM Electronically Signed By:Zayda Duran RN Intervention Information
[2018-06-09 10:14] VITALS: BP 103/65
--- NOTE | 2018-06-09 21:38 | GDS ---
[f rep st] DISCHARGE SUMMARY SUPERVISING SERVICE UNIT OPERATOR OIL WELL: Abdon Madera MD ADMISSION DIAGNOSES: 1. High frequency premature ventricular contractions. 2. Dyspnea on exertion. 3. Chest pain. DISCHARGE DIAGNOSES: 1. Nonobstructive coronary artery disease. 2. High frequency premature ventricular contractions. PROCEDURES PERFORMED DURING HOSPITALIZATION: 1. Electrocardiogram. 2. Left heart catheterization. HOSPITAL COURSE: Patient presented 06/08/2018, for left heart catheterization in the setting of persistent dyspnea on exertion and chest discomfort. He underwent left heart catheterization with Dr. Abdon Madera, which demonstrated mild proximal and mid LAD disease, moderate 40% proximal RCA disease with diffuse mild mid disease, and mild proximal ramus disease. He has done very well post procedure and has been ambulating around in his room this morning without issue. He is appropriate and stable for discharge home today. CURRENT PHYSICAL EXAMINATION: GENERAL: He is alert and oriented x4, no apparent distress. VITAL SIGNS: Blood pressure 103/65, heart rate 61, respiratory rate 12, SpO2 94% on room air, temp 36.8 degrees Celsius. RESPIRATORY: Lungs are clear to auscultation without adventitious breath sounds. CARDIAC: Normal S1 and S2. No S3, S4, or murmurs. Rhythm is irregularly irregular. ABDOMEN: Normoactive bowel sounds times all 4 quadrants. No masses or tenderness. ABDOMEN: Soft to palpation. SKIN: [place] , warm, dry without cyanosis, clubbing, or peripheral edema. EXTREMITIES: Right groin access site is clean and dry without evidence of redness, oozing, swelling, hematoma. Pulses are 2+ bilaterally. No edema. LABORATORY STUDIES: Drawn 06/08 demonstrating normal CBC and BMP. PROCEDURES: Left heart catheterization as mentioned above. DISCHARGE DISPOSITION: Patient will be discharged home in stable condition. He is under activity restrictions as below. DISCHARGE MEDICATIONS: Please see discharge medication reconciliation sheet for full details. Please note that patient will continue his statin and his aspirin 81 mg daily. No medication changes have been made during this hospitalization. DISCHARGE INSTRUCTIONS: Post left-heart catheterization instructions reviewed with patient in detail. We discussed activity restrictions including lifting no more than 10 pounds and avoidance of submerged bathing for the next 10 days. We also reviewed bleeding precautions, medication compliance, and monitoring for signs and symptoms of infection. At the time of discharge, patient verbalizes understanding regarding all discharge instructions without questions or concerns. We will schedule him for his PVC ablation within the next few weeks. He will contact our clinic if he experiences any new or concerning symptoms prior to his upcoming procedure. TIME SPENT ON DISCHARGE: Greater than 30 minutes. /[id number]/MODL MTDD
[2018-06-12] MEDS ORDERED: Buprenorphine [Butrans 20 Mcg/Hr] TD SCH (09:00)
--- NOTE | 2018-06-15 11:04 | CPEKG ---
Test Reason : OPEN Blood Pressure : / mmHG Vent. Rate : 058 BPM Atrial Rate : 058 BPM P-R Int : 144 ms QRS Dur : 092 ms QT Int : 415 ms P-R-T Axes : 062 -61 038 degrees QTc Int : 408 ms Sinus rhythm Probable left atrial enlargement Left anterior fascicular block Confirmed by Laci Vaughan ([id number]) on 06/15/2018 11:04:44 AM Referred By: Abdon Madera Confirmed By:Laci Vaughan
== END 2018-06-09 12:05 | disposition home or self-care (01) ==
LOC: FCATH 11:10 → F2W 17:25 → EDLOC 17:25 → F2W 18:35
PROVIDERS: ADMIT Internal Medicine Cardiovascular Disease; ATTEND Internal Medicine Cardiovascular Disease
DX: I49.3 Ventricular premature depolarization (principal); R07.9 Chest pain, unspecified; I25.10 Atherosclerotic heart disease of native coronary artery without angina pectoris; G47.30 Sleep apnea, unspecified; F41.9 Anxiety disorder, unspecified; R51 Headache
CPT/HCPCS: 93458; C1760; J1644; J2250; J2704; J3010; Q9967

== ENCOUNTER → 2018-06-15 | Outpatient (CLI) | payer OTHER | LOC: BHFA 13:30 | PROVIDERS: ATTEND Internal Medicine Cardiovascular Disease | DX: I49.3 Ventricular premature depolarization (principal) ==

== ENCOUNTER 2018-06-21 07:05 | Observation (INO) | payer OTHER ==
[2018-06-21] MEDS ORDERED: NS 1,000 ML IV ONE (07:07)
--- NOTE | 2018-06-21 08:12 | PDGENHP ---
History & Physical Chief Complaint: High-frequency PVCs History of Present Illness: High-frequency PVCs associated with fatigue. Recent coronary angiography demonstrated nonobstructive CAD. Relevant Physical Exam: General: A&Ox4, no apparent distress. Respiratory: CTA. Cardiac: Regular rate and rhythm, PVCs, S1, S2. Extremities: No edema, pulses 2+ bilaterally Cardiorespiratory Assessment: Proceed with PVC ablation as planned for today. Plan to DC home on [facility].
[2018-06-21 08:13] LABS: PLATELET COUNT 134 10^3/uL (150-400)
[2018-06-21] MEDS ORDERED: HEPARIN 10,000 UNIT/10 ML MDV (1,000 UNIT/ML) ONE (08:14)
[2018-06-21] MEDS ORDERED: LIDOCAINE 1% 300 MG/30 ML SDV ONE (08:14)
[2018-06-21] MEDS ORDERED: HEPARIN/DEXTROSE 25,000 UNIT/500 ML BAG ONE (08:15)
[2018-06-21] MEDS ORDERED: ISOPROTERENOL HCL/D5W 0.2 MG/50 ML BAG IV ONE (08:15)
[2018-06-21] MEDS ORDERED: BUPIVACAINE 0.75% 10 ML SDV ONE (08:15)
[2018-06-21 08:17] LABS: INR 0.98 (0.83-1.16); PROTIME(PATIENT) 12.6 SEC (12.0-15.0)
--- NOTE | 2018-06-21 08:18 | PDANEPAE ---
ANE History of Present Illness Symptomatic PVC/APC's ANE Past Medical History - Cardiovascular History Hx Hypertension: No Hx Arrhythmias: Yes Hx Chest Pain: No Hx Coronary Artery / Peripheral Vascular Disease: Yes Hx CHF / Valvular Disease: No Hx Palpitations: Yes Cardiovascular History Comment: PVC'S/PAC'S. LT BBB - Pulmonary History Hx COPD: No Hx Asthma/Reactive Airway Disease: No Hx Recent Upper Respiratory Infection: No Hx Oxygen in Use at Home: No Hx Sleep Apnea: Yes Pulmonary History Comment: ronna positive UNABLE TO TOLERATE cpap - Neurologic History Hx Cerebrovascular Accident: No Hx Seizures: No Hx Dementia: No Neurologic History Comment: chronic headaches - Endocrine History Hx Diabetes: No - Renal History Hx Renal Disorders: No - Liver History Hx Hepatic Disorders: No - Neurological & Psychiatric Hx Hx Neurological and Psychiatric Disorders: Yes Neurological / Psychiatric History Comment: anxiety. DAILY HEADACHES - Cancer History Hx Cancer: No - Congenital Disorder History Hx Congenital Disorders: No - GI History Hx Gastrointestinal Disorders: Yes Gastrointestinal History Comment: reflux. barretts esophagus - Other Health History Other Health History: CERVICAL STENOSIS. FACTOR V LEIDEN. LYME DX 2007. NEUROPATHY ENTIRE BODY - Chronic Pain History Chronic Pain: Yes (headaches) - Surgical History Prior Surgeries: BRONCHOSCOPY 01/26. cervical spinal leak that was repaired. UNKNOWN 2002 ANE Review of Systems Review of Systems: ANE Patient History - Allergies Allergies/Adverse Reactions: No Known Allergies Allergy (Verified 02/14/18 13:10) - Home Medications Home medications: home medication list seen and reviewed Home Medications: OLANZapine [ZyPREXA 2.5 mg (*)] 1.25 - 2.5 mg PO HS 02/03/17 [Last Taken 22:00] Pregabalin [Lyrica 100mg (*)] 100 mg PO DAILY 02/03/17 [Last Taken 06/20/18 08: 00] DULoxetine [Cymbalta 60 MG (*)] 60 mg PO BID 01/24/18 [Last Taken 06/20/18 22:00 ] Rosuvastatin Calcium [Crestor] 10 mg PO HS 01/24/18 [Last Taken 06/20/18 22:00] clonazePAM [Klonopin (*)] 0.5 mg PO BID PRN 02/08/18 [Last Taken 06/20/18 08:00] Pregabalin [Lyrica 100mg (*)] 200 mg PO HS 06/01/18 [Last Taken 06/20/18 22:00] Buprenorphine [Butrans 20 mcg/hr] 1 each TD GUILLORY 06/08/18 [Last Taken 06/19/18 08: 00] - NPO status NPO Status: no food or drink >8 hours - Anes Hx Anes Hx: no prior problems - Smoking Hx Smoking Status: Never smoked - Family Anes Hx Family Hx Anesthesia Complications: none ANE Labs/Vital Signs - Labs Result Diagrams: 06/21/18 07:40 06/21/18 07:40 - Vital Signs Height: 175.2 cm Weight: 80.7 kg ANE Physical Exam - Airway Neck exam: FROM Mallampati Score: Class 2 Mouth exam: normal dental/mouth exam - Pulmonary Pulmonary: no respiratory distress - Cardiovascular Cardiovascular: regular rate and rhythym - ASA Status ASA Status: III ANE Anesthesia Plan Anesthesia Plan: general endotracheal anesthesia (Requestion Propofol only, no gas or narcotics. Plan Prop infusion.)
[2018-06-21] MEDS ORDERED: ROCURONIUM 50 MG/5 ML VIAL ONE ×3 (08:34→12:02)
[2018-06-21] MEDS ORDERED: PROPOFOL/EMULSION 500 MG/50 ML BOTTLE IV ONE ×4 (08:35→12:04)
[2018-06-21] MEDS ORDERED: PROPOFOL 200 MG/20 ML VIAL ONE (08:35)
[2018-06-21] MEDS ORDERED: PHENYLEPHRINE HCL 100 MCG/ML SYR ONE (09:21)
[2018-06-21] MEDS ORDERED: DOPamine/DEXTROSE 400 MG/250 ML BAG IV ONE (10:34)
[2018-06-21] MEDS ORDERED: SUGAMMADEX SODIUM 200 MG/2 ML VIAL IVP ONE (12:12)
[2018-06-21] MEDS ORDERED: PROTAMINE SULFATE 50 MG/5 ML VIAL IVP ONE (12:13)
[2018-06-21] MEDS ORDERED: clonazePAM 0.5 MG TAB PO PRN (12:16)
[2018-06-21] MEDS ORDERED: NALOXONE HCL 0.4 MG/ML INJ IVP PRN (12:43)
[2018-06-21] MEDS ORDERED: fentaNYL 100 MCG/2 ML INJ IVP PRN (12:43)
--- NOTE | 2018-06-21 12:43 | POSTANESTH ---
Post Anesthetic Evaluation Cardiovascular Status: Similar to Pre-Op Cond Respiratory Status: Similar to Pre-op Cond. Level of Consciousness/Mental Status: Alert and Oriented Pain Control: Adequate, Prn Tx Ordered Nausea/Vomiting Control: Adequate, Prn Tx Ordered Complications Possibly Related to Anesthesia: None Noted
[2018-06-21] MEDS ORDERED: DULoxetine 60 MG CAP PO SCH ×2 (14:38→21:00)
--- NOTE | 2018-06-21 15:03 | EPPROC ---
Electrophysiology Procedure Note: ELECTROPHYSIOLOGIC STUDY AND CATHETER MEDIATED ABLATION OF PREMATURE VENTRICULAR BEATS ORIGINATING IN THE PARAHISIAN AREA Procedures performed: 04987-94 EP evaluation with RA/RV/LA pace/record, with arrhythmia induction 89988-36 EP evaluation with RA/RV pace record, insert/reposition catheter, with arrhythmia induction 69156 Intracardiac catheter ablation, VT arrhythmogenic focus Fluoroscopy INDICATION: Recurrent PVC, not controlled with BB or CCB The patient arrived in the Electrophysiology Laboratory in the fasting state. The right clavicular region, right groin, and left groin area were prepped and draped in the usual sterile manner. Appropriate non-invasive blood pressure, pulse oximetry and end-tidal CO2 monitoring was established. Anesthesiologist Dr. Bijal Graham administered propofol sedation. All catheters were placed percutaneously using the modified Seldinger technique , and advanced into position under fluoroscopic guidance. A Jamglue catheter with IVC electrode was placed in RA and RV. Programmed stimulation was performed from the right atrium, right ventricle and CS (left atrium). Parahisian pacing demonstrated all retrograde conduction over the AV node. The patient arrived to the electrophysiology laboratory in normal sinus rhythm with frequent PVC. PVC morphology LBBB superior axis with QRS transition between V2-V3. PVC frequency increased with dopamine. A 4 mm Navistar ablation catheter with a magnetic sensor for the Carto 3D electroanatomic mapping system was used for mapping. RealRiderSound was used to obtain RV and LV and Aortic contours. Mapping (during PVC) of the RV and RVOT showed earliest activation in a parahisian focus, inferior to the His. There was a 96% pace map match and ventricular activation began 30 ms before the onset of the QRS complex with sharp negative deflection in the unipolar electrode. RF application at this site eliminated this PVC. Observation after the application of radiofrequency current was performed during dopamine administration. No spontaneous ventricular extra systoles of the primary pattern seen prior to ablation were induced spontaneously or with ventricular burst pacing. There was a second morphology of PVC seen with QRS transition in V4, early activation was seen proximal to RF#1 site. Ablation at this site showed junctional automaticity and therefore further RF applications were not delivered. The catheters were removed. Protamine was administered. The patient was transferred to the cardiovascular holding area in stable condition. Vascular access sheaths were removed in the holding area. There were no apparent complications. CONCLUSIONS: 1. Premature ventricular beats originating from right side of interventricular septum, parahisian locus. 2. Successful catheter mediated ablation of the premature ventricular beats. 3. Second morphology of PVC seen post ablation of clinical PVC, not ablated due to proximity to AV node. 4. No apparent complications. Patient Problems: Problems Problem Status Onset Coronary artery disease Acute PVC (premature ventricular contraction) Acute GERD (gastroesophageal reflux disease) Acute
[2018-06-21] MEDS ORDERED: PREGABALIN 100 MG CAP PO SCH ×2 (15:30→21:00)
[2018-06-21] MEDS: DULoxetine 60 MG CAP PO SCH ×2 (15:32→21:42)
[2018-06-21] MEDS ORDERED: ACETAMINOPHEN 325 MG TAB PO PRN (18:03)
[2018-06-21] MEDS ORDERED: OLANZapine 2.5 MG TAB PO SCH (21:00)
[2018-06-21] MEDS ORDERED: ROSUVASTATIN CALCIUM 10 MG TAB PO SCH (21:00)
[2018-06-22 05:24] LABS: PLATELET COUNT 109 10^3/uL (150-400)
[2018-06-22 07:50] VITALS: BP 112/73
[2018-06-22] MEDS ORDERED: ASPIRIN 81 MG CHEWABLE TAB PO SCH (09:00)
[2018-06-22] MEDS ORDERED: APIXABAN 5 MG TAB PO SCH (09:00)
[2018-06-22] MEDS ORDERED: PREGABALIN 100 MG CAP PO SCH ×2 (09:00→14:38)
--- NOTE | 2018-06-22 10:13 | ECHO ---
[email or web address] [address] [address] Main: [phone] Echocardiography Examination Transthoracic Name: DEBORAH JEFF MR#: [id number] Study Date: 06/22/2018 Study Time: 08:04 AM Date of : 1940 Age: 78 year(s) Height: 175.3 cm (69 in.) Weight: 80.29 kg (177 lb.) BSA: 1.96 m2 Gender: Male Examination: Echo Contrast: Image Quality: Adequate Rhythm: Normal sinus rhythm Heart Rate: 65 bpm BP: 122 mmHg/73 mmHg Indication: POST EP study Procedure Staff Referring Physician: Inspector Aligning: Jenny Rios [facility] Reading Physician: Abdon Madera MD Requesting Provider: Ordering Physician: Abdon Madera MD Indication: POST EP study Measurements Chambers AV/MV Label Value Normal Value Label Value Normal Value EF upper range (%) 60 % AR PHT 0.71 s IVSd, 2D 1.1 cm (0.6cm - 1.1cm) AR PHT 706 ms LVDd, 2D 4.6 cm (4.2cm - 5.9cm) AR Vena contracta 0.3 cm LVDs, 2D 3 cm (2.1cm - 4cm) AR Vmax 3.5 m/s LVEF, 2D 63 % (54% - 74%) AV PGmax 6 mmHg LVEF, BP 56 % (55% - 70%) AV Vmax, Caliper 1.22 m/s LVOT PGmax 3 mmHg ISIAH (continuity eq. 2.9 cm2 LVOT Vmax 0.86 m/s (0.7m/s - 1.1m/s) Vmax) LVOTd 2.3 cm (1.9cm - 2.1cm) MR Vena Contracta 0.3 cm LVPWd, 2D 1 cm (0.6cm - 1cm) MV A Vmax 0.82 m/s RVDd, 2D 3.3 cm (1.9cm - 3.8cm) MV DT 183 ms TAPSE 2.1 cm MV E' lateral 0.09 m/s LADs, 2D 3.4 cm (3cm - 4cm) MV E' mean 0.08 m/s RA Area 16.4 cm2 MV E' septal 0.08 m/s Additional Vessels MV E Vmax 0.53 m/s Label Value Normal Value MV E/A 0.65 AoAsc 3.4 cm MV E/E' lateral 5.7 AoRoot, 2D 4 cm (1.4cm - 2.6cm) MV E/E' mean 6.24 MV E/E' septal 6.8 (0.45 - 1.25) Patient: DEBORAH JEFF Study Date: 06/22/2018 Page 1 of 3 08:04 AM TV/PV Label Value Normal Value RA Pressure 5 mmHg RVSP 32 mmHg TR Pmax 27 mmHg TR Vmax 2.58 m/s [place] End curry Pablo 0.38 cm/s PV PGmax 3 mmHg PV Vmax, Caliper 0.83 m/s (0.6m/s - 0.9m/s) Conclusions Left Ventricle: Normal global systolic left ventricular function. Left ventricular diastolic function parameters are normal. IAS: The interatrial septum is thin and anuerysmal with no obvious shunt noted by color flow doppler.. Aortic Valve: Mild aortic regurgitation is present. Tricuspid Valve: Moderate tricuspid regurgitation. Aorta: The aortic root exhibits mild dilatation. Findings Left Ventricle: Left ventricle is normal in size. Normal global systolic left ventricular function. EF evaluated by EF (biplane Reza's). The ejection fraction, measured by Simpsons method, is 56 %. The LV wall thickness is at the upper limits of normal. There is no regional wall motion abnormalities. Left ventricular diastolic function parameters are normal. Right Ventricle: Normal size right ventricle. Right ventricular systolic function is normal. Left Atrium: LA volume index BP 32 ml/m2. The left atirum is borderline dilated. IAS: The interatrial septum is thin and anuerysmal with no obvious shunt noted by color flow doppler.. Right Atrium: The right atrium is borderline dilated. Mitral Valve: Mitral valve appears structurally normal. Mild mitral regurgitation. No mitral valve stenosis. There is mild mitral thickening. Aortic Valve: The aortic valve is structurally normal and trileaflet. Mild aortic regurgitation is present. There is no aortic stenosis. Tricuspid Valve: Tricuspid valve leaflets are structurally normal. Moderate tricuspid regurgitation. Right Ventricular systolic pressure is measured at 32 mmHg. Pulmonary artery pressure normal. Pulmonic Valve: Pulmonic leaflets are structurally normal. Aorta: Patient: DEBORAH JEFF Study Date: 06/22/2018 Page 2 of 3 08:04 AM The aortic root size in 2D measures 4.0 cm. The aortic root exhibits mild dilatation. The ascending aorta measures 3.4 cm. Ascending aorta is normal in size. Aorta Measurements AoRoot, 2D is 4.0 cm. IVC: The inferior vena cava is normal in size and course. Pericardium: No pericardial effusion. Exam Details Procedure Ordered: Echo Procedure Status: Routine study Image Quality: Adequate Facility Location: Cardiac Echo 1 (No Signature Object) Patient: DEBORAH JEFF Study Date: 06/22/2018 Page 3 of 3 08:04 AM [id number]
--- NOTE | 2018-06-22 19:31 | GDS ---
[f rep st] DISCHARGE SUMMARY SUPERVISING MAPPING SUPERVISOR: Abdon Madera MD ADMISSION DIAGNOSES: 1. High frequency premature ventricular contractions. 2. Factor V Leiden. DISCHARGE DIAGNOSES: 1. High frequency premature ventricular contractions, status post successful ablation. 2. Factor V Leiden. PROCEDURES PERFORMED DURING HOSPITALIZATION: 1. Electrophysiology study. 2. Electrocardiogram. 3. Echocardiogram. 4. PVC ablation. HOSPITAL COURSE: Patient presented 06/21/2018, for a PVC ablation in the setting of symptomatic very high frequency PVCs, status post recent coronary angiography, which demonstrated nonobstructive cecilio nary artery disease. He underwent successful PVC ablation with Dr. Abdon Madera and had no intra-proce dure complex complications. He continues to have low-frequency unifocal PVCs, which were targeted fo r ablation; however, the origin was close to the AV node and junctional rhythm was induced with attem pted ablation. No recurrence of targeted PVCs post-ablation and telemetry currently demonstrates low -frequency unifocal PVCs from a secondary origin. The patient reports feeling very well overall with improved energy. He has been ambulating around his room this morning without issue and he is approp riate and stable for discharge home today. CURRENT PHYSICAL EXAMINATION: GENERAL: Alert and oriented x4. No apparent distress. VITAL SIGNS: Blood pressure 112/73, heart rate 64, respiratory rate 12, SpO2 92% on room air, temp 36.6 degrees C elsius. RESPIRATORY: Lungs are clear to auscultation without adventitious breath sounds. CARDIAC: Normal S1, S2. No S3, S4, or murmurs. Rhythm is regular. ABDOMEN: Normoactive bowel sounds times all 4 quadrants. No masses or tenderness. Soft to palpation. SKIN: [place], warm, dry without cyano sis, clubbing, or peripheral edema. EXTREMITIES: Bilateral pursestring sutures removed without evid ence of hematoma, redness, oozing, swelling, or warmth. Resolving right groin ecchymosis. Pulses 2+ bilaterally. No edema. LABORATORY STUDIES: Drawn today, CBC and BMP relatively stable compared to preprocedure. Troponin 1 .070, elevated troponin is to be expected in the postprocedure setting. PROCEDURES PERFORMED DURING HOSPITALIZATION: Electrophysiology study and PVC ablation as mentioned a felicia. Postprocedure electrocardiogram this morning demonstrates normal sinus rhythm without new p.r. n. ST or T-wave abnormalities. Preliminary review of echocardiogram this morning demonstrates stable left ventricular systolic function without any wall motion abnormalities. DISCHARGE DISPOSITION: Patient will be discharged home in stable condition. He is under activity re strictions as below. DISCHARGE MEDICATIONS: Please see discharge medication reconciliation sheet for full details. Charbel kelley note, the patient's aspirin will be held for the next 4 weeks and he will start Eliquis for 1 month in light of his Factor V Leiden. DISCHARGE INSTRUCTIONS: Post PVC ablation instructions reviewed with the patient in detail. 1. We discussed activity instructions, including lifting no more than 10 pounds and avoidance submer ged bathing for 10 days. 2. He will get up and walk around every 45 minutes for 45 days. 3. We reviewed bleeding precautions, medication compliance, monitoring for signs and symptoms of inf ection, and monitoring for sustained arrhythmia. At the time of discharge, patient verbalizes his understanding regarding discharge instructions witho ut questions or concerns. He has a followup visit scheduled in the next 3 to 4 weeks, and he will co ntact us with any new or concerning symptoms prior to his upcoming visit. TIME SPENT ON DISCHARGE: Greater than 30 minutes. /[id number]/MODL
--- NOTE | 2018-06-24 18:35 | CPEKG ---
Test Reason : OPEN Blood Pressure : / mmHG Vent. Rate : 058 BPM Atrial Rate : 059 BPM P-R Int : 154 ms QRS Dur : 095 ms QT Int : 406 ms P-R-T Axes : 064 -53 044 degrees QTc Int : 399 ms Sinus rhythm Ventricular premature complex Left anterior fascicular block Confirmed by Rudi Wong ([id number]) on 06/24/2018 6:34:54 PM Referred By: Abdon Madera Confirmed By:Rudi Wong
--- NOTE | 2018-06-24 18:37 | CPEKG ---
Test Reason : OPEN Blood Pressure : / mmHG Vent. Rate : 077 BPM Atrial Rate : 077 BPM P-R Int : 157 ms QRS Dur : 096 ms QT Int : 408 ms P-R-T Axes : 060 -54 039 degrees QTc Int : 462 ms Sinus rhythm Ventricular trigeminy Probable left atrial enlargement Left anterior fascicular block Abnormal R-wave progression Confirmed by Rudi Wong ([id number]) on 06/24/2018 6:36:39 PM Referred By: Abdon Madera Confirmed By:Rudi Wong
--- NOTE | 2018-06-24 18:40 | CPEKG ---
Test Reason : OPEN Blood Pressure : / mmHG Vent. Rate : 068 BPM Atrial Rate : 067 BPM P-R Int : 153 ms QRS Dur : 096 ms QT Int : 403 ms P-R-T Axes : 058 -49 040 degrees QTc Int : 429 ms Sinus rhythm Probable left atrial enlargement Left anterior fascicular block Confirmed by Rudi Wong ([id number]) on 06/24/2018 6:39:30 PM Referred By: Abdon Madera Confirmed By:Rudi Wong
[2018-06-26] MEDS ORDERED: Buprenorphine [Butrans 20 Mcg/Hr] 1 EACH TD SCH (09:00)
== END 2018-06-22 09:45 | disposition home or self-care (01) ==
LOC: FCATH 07:05 → F2W 12:15
PROVIDERS: ADMIT Internal Medicine Cardiovascular Disease; ATTEND Internal Medicine Cardiovascular Disease
PROC: 025K3ZZ Destruction of Right Ventricle, Percutaneous Approach (ICD-10-PCS; principal; 2018-06-21)
PROC: 02573ZZ Destruction of Left Atrium, Percutaneous Approach (ICD-10-PCS; principal; 2018-06-21)
PROC: 02563ZZ Destruction of Right Atrium, Percutaneous Approach (ICD-10-PCS; principal; 2018-06-21)
PROC: 5A1213Z Performance of Cardiac Pacing, Intermittent (ICD-10-PCS; principal; 2018-06-21)
PROC: 4A023FZ Measurement of Cardiac Rhythm, Percutaneous Approach (ICD-10-PCS; principal; 2018-06-21)
DX: I49.3 Ventricular premature depolarization (principal); D68.2 Hereditary deficiency of other clotting factors
CPT/HCPCS: 93005; 93306; 93623; 93654; C1730; C1732; C1766; J1265; J1644; J2370; J2704; J2720

== ENCOUNTER → 2018-07-22 | Outpatient (CLI) | payer OTHER | LOC: BHFA 11:00 | PROVIDERS: ATTEND Internal Medicine Cardiovascular Disease | DX: I49.3 Ventricular premature depolarization (principal) ==

== ENCOUNTER 2018-07-25 13:13 | Inpatient (IN) | payer OTHER ==
[2018-07-25] MEDS ORDERED: NS 1,000 ML IV ONE (13:19)
[2018-07-25] MEDS ORDERED: TRANEXAMIC ACID 1,000 MG in NS 100 ML IV ONE (13:23)
[2018-07-25] MEDS ORDERED: TRANEXAMIC ACID 1,000 MG in NS 500 ML IV ONE (13:23)
[2018-07-25 13:26] LABS: PLATELET COUNT 158 10^3/uL (150-400)
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
[2018-07-25 13:34] LABS: INR 0.91 (0.83-1.16); PROTIME(PATIENT) 11.9 SEC (12.0-15.0)
[2018-07-25] MEDS ORDERED: IOPAMIDOL (ISOVUE-300) 100 ML BTL ONE (13:43)
[2018-07-25] MEDS ORDERED: fentaNYL 100 MCG/2 ML INJ IVP ONE (14:59)
[2018-07-25] MEDS ORDERED: fentaNYL 100 MCG/2 ML INJ ONE (15:01)
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
[2018-07-25] MEDS: HYDROmorphONE/DILAUDID 1 MG/ML INJ IVP PRN ×3 (17:43→23:08)
[2018-07-25] MEDS ORDERED: D5W 1/2 NS 1,000 ML IV SCH (18:30)
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
[2018-07-25] MEDS ORDERED: ONDANSETRON 4 MG/2 ML VIAL IVP PRN (22:26)
[2018-07-25] MEDS ORDERED: clonazePAM 0.5 MG TAB PO PRN (22:30)
[2018-07-26] MEDS: HYDROmorphONE/DILAUDID 1 MG/ML INJ IVP PRN ×4 (02:04→15:54)
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
[2018-07-26 09:07] LABS: PLATELET COUNT 136 10^3/uL (150-400)
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
--- NOTE | 2018-07-26 10:48 | ASMTCMCOM ---
CM Note CM Note Notes: CM met with pt, his and daughter. CM provided education on ICU processes and discharge planning. CM provided support and family was appreciative. Pt continues to be confused. Pt care discussed in rounds, SOFTWARE QUALITY TEST ENGINEER will see today to do Cognitive Eval and Swallow study. Therapies are ordered. Inpt rehab order placed, CM spoke with Dasha from inpt rehab and she is going to be following pt as he engages in therapies and progresses. Family may benefit from family meeting as pt progresses. CM to follow. Plan: TBD Date Signed: 07/26/2018 10:47 AM Electronically Signed By:BUSHRA Rabago
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
[2018-07-26] MEDS: DULoxetine 60 MG CAP PO SCH ×2 (15:35→21:33)
[2018-07-26] MEDS: PREGABALIN 100 MG CAP PO SCH ×2 (15:35→21:33)
[2018-07-26] MEDS: hydrOXYzine HCL 10 MG TAB PO SCH ×3 (15:54→21:33)
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
[2018-07-26] MEDS: OLANZapine 2.5 MG TAB PO SCH (21:33)
[2018-07-27] MEDS: HYDROmorphONE/DILAUDID 1 MG/ML INJ IVP PRN (00:41)
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
[2018-07-27] MEDS: hydrOXYzine HCL 10 MG TAB PO SCH ×2 (10:24→21:43)
[2018-07-27] MEDS: PREGABALIN 100 MG CAP PO SCH ×2 (10:24→21:43)
[2018-07-27] MEDS: DULoxetine 60 MG CAP PO SCH ×2 (10:24→21:42)
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
[2018-07-27] MEDS ORDERED: BUPRENORPHINE TD SCH (15:45)
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
[2018-07-27] MEDS: ACETAMINOPHEN 325 MG TAB PO PRN (18:42)
[2018-07-27] MEDS: OLANZapine 2.5 MG TAB PO SCH (21:42)
[2018-07-28] MEDS: HYDROmorphONE/DILAUDID 1 MG/ML INJ IVP PRN (01:31)
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
[2018-07-28] MEDS: hydrOXYzine HCL 10 MG TAB PO SCH ×2 (11:04→20:46)
[2018-07-28] MEDS: PREGABALIN 100 MG CAP PO SCH ×2 (11:04→20:19)
[2018-07-28] MEDS: DULoxetine 60 MG CAP PO SCH ×2 (11:04→20:21)
[2018-07-28] MEDS ORDERED: MAGNESIUM HYDROXIDE 30 ML UDCUP PO PRN (12:38)
[2018-07-28] MEDS ORDERED: POLYETHYLENE GLYCOL 3350 17 GM PKT PO PRN (12:38)
[2018-07-28] MEDS ORDERED: LACTULOSE 20 GM/30 ML UDCUP PO PRN (12:38)
[2018-07-28] MEDS ORDERED: BISACODYL 10 MG SUPP PR PRN (12:38)
--- NOTE | 2018-07-28 14:47 | ASMTCMCOM ---
CM Note CM Note Notes: Spoke with patient, and dtr about d/c planning. They are hopeful for [facility] although there is not a bed currently available. I gave them a list of other inpatient rehab facilities in the area, as well as a few SNF. Patient's will begin calling and visiting. Case Management will continue to check in with [facility] for an opening. Date Signed: 07/28/2018 02:46 PM Electronically Signed By:Yana Jason RN
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
[2018-07-28] MEDS: OLANZapine 2.5 MG TAB PO SCH (20:20)
[2018-07-28] MEDS: ROSUVASTATIN CALCIUM 10 MG TAB PO SCH (20:20)
[2018-07-28] MEDS: SENNOSIDES/DOCUSATE SODIUM TAB PO SCH (20:20)
[2018-07-28] MEDS: ACETAMINOPHEN 325 MG TAB PO PRN (21:45)
--- NOTE | 2018-07-29 07:47 | CPEKG ---
Test Reason : OPEN Blood Pressure : / mmHG Vent. Rate : 077 BPM Atrial Rate : 077 BPM P-R Int : 151 ms QRS Dur : 092 ms QT Int : 392 ms P-R-T Axes : 064 -60 049 degrees QTc Int : 444 ms Sinus rhythm Left anterior fascicular block Abnormal R-wave progression, early transition Confirmed by Rupert Espinal ([id number]) on 07/29/2018 7:46:03 AM Referred By: Rupert Espinal Confirmed By:Rupert Espinal
[2018-07-29] MEDS: SENNOSIDES/DOCUSATE SODIUM TAB PO SCH ×2 (09:11→20:22)
[2018-07-29] MEDS: ACETAMINOPHEN 325 MG TAB PO PRN ×2 (09:12→20:24)
[2018-07-29] MEDS: ENOXAPARIN 40 MG/0.4 ML SYR SC SCH (09:12)
[2018-07-29] MEDS: DULoxetine 60 MG CAP PO SCH ×2 (09:12→20:16)
[2018-07-29] MEDS: PREGABALIN 100 MG CAP PO SCH ×2 (09:12→20:17)
[2018-07-29] MEDS: ASPIRIN 81 MG CHEWABLE TAB PO SCH (09:32)
[2018-07-29] MEDS: hydrOXYzine HCL 10 MG TAB PO SCH ×2 (09:34→20:17)
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
--- NOTE | 2018-07-29 15:43 | ASMTCMCOM ---
CM Note CM Note Notes: Patient to discharge today, CM met with patient and family who will be discharging and supporting recommended follow. CM delivered IM, patient signed for receipt. CM available to follow if any CM/Dicharge Needs arise. Date Signed: 07/29/2018 03:43 PM Electronically Signed By:Cheyanne Coy
--- NOTE | 2018-07-29 15:44 | ASMTCMCOM ---
CM Note CM Note Notes: Previous CM note entered in error, please disregard. Date Signed: 07/29/2018 03:44 PM Electronically Signed By:Cheyanne Coy
--- NOTE | 2018-07-29 16:18 | ASMTCMCOM ---
CM Note CM Note Notes: CM discussed case with medical team, patient would highly benefit from Inpatient Rehab. CM spoke with Ramona with [facility] Inpatient Re[facility], they do not currently have any beds available, patient is on list. Referrals sent to multiple agencies, CM called and left a message for Renee to discuss options the family is considering for placement. CM to follow. D/C plan: Inpatient rehab Date Signed: 07/29/2018 04:17 PM Electronically Signed By:Cheyanne Coy
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
[2018-07-29] MEDS: OLANZapine 2.5 MG TAB PO SCH (20:16)
[2018-07-29] MEDS: ROSUVASTATIN CALCIUM 10 MG TAB PO SCH (20:16)
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
[2018-07-30] MEDS: DULoxetine 60 MG CAP PO SCH ×2 (08:49→20:03)
[2018-07-30] MEDS: ENOXAPARIN 40 MG/0.4 ML SYR SC SCH (08:49)
[2018-07-30] MEDS: PREGABALIN 100 MG CAP PO SCH ×2 (08:49→20:04)
[2018-07-30] MEDS: hydrOXYzine HCL 10 MG TAB PO SCH ×2 (08:50→20:03)
[2018-07-30] MEDS: SENNOSIDES/DOCUSATE SODIUM TAB PO SCH ×2 (08:50→20:05)
[2018-07-30] MEDS: ASPIRIN 81 MG CHEWABLE TAB PO SCH (08:58)
--- NOTE | 2018-07-30 10:16 | ASMTCMCOM ---
CM Note CM Note Notes: Pt has been accepted to [facility]-rehab in [place], and [facility] in [place]. [facility] in [place], [facility] in [place] and [facility] in [place] are interested. Date Signed: 07/30/2018 10:16 AM Electronically Signed By:Faina Rosales
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
[2018-07-30] MEDS: ROSUVASTATIN CALCIUM 10 MG TAB PO SCH (20:04)
[2018-07-30] MEDS: OLANZapine 2.5 MG TAB PO SCH (20:04)
[2018-07-31] MEDS: hydrOXYzine HCL 10 MG TAB PO SCH ×2 (07:57→20:20)
[2018-07-31] MEDS: SENNOSIDES/DOCUSATE SODIUM TAB PO SCH ×2 (08:03→20:20)
[2018-07-31] MEDS: DULoxetine 60 MG CAP PO SCH ×2 (08:03→20:21)
[2018-07-31] MEDS: PREGABALIN 100 MG CAP PO SCH ×2 (08:03→20:21)
[2018-07-31] MEDS: ENOXAPARIN 40 MG/0.4 ML SYR SC SCH (08:04)
[2018-07-31] MEDS: ACETAMINOPHEN 325 MG TAB PO PRN (08:05)
[2018-07-31] MEDS: ASPIRIN 81 MG CHEWABLE TAB PO SCH (08:36)
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
[2018-07-31] MEDS ORDERED: Buprenorphine [Butrans 20 Mcg/Hr] 1 EACH TD SCH (09:00)
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
[2018-07-31] MEDS: ROSUVASTATIN CALCIUM 10 MG TAB PO SCH (20:21)
[2018-07-31] MEDS: OLANZapine 2.5 MG TAB PO SCH (20:21)
[2018-08-01 07:58] VITALS: BP 125/74
[2018-08-01] MEDS: ENOXAPARIN 40 MG/0.4 ML SYR SC SCH (09:35)
[2018-08-01] MEDS: DULoxetine 60 MG CAP PO SCH (09:35)
[2018-08-01] MEDS: ASPIRIN 81 MG CHEWABLE TAB PO SCH (09:35)
[2018-08-01] MEDS: PREGABALIN 100 MG CAP PO SCH (09:36)
[2018-08-01] MEDS: hydrOXYzine HCL 10 MG TAB PO SCH (09:36)
[2018-08-01] MEDS: SENNOSIDES/DOCUSATE SODIUM TAB PO SCH (09:37)
[2018-08-01] MEDS: ACETAMINOPHEN 325 MG TAB PO PRN (09:52)
--- NOTE | 2018-08-01 10:03 | ASMTCMCOM ---
LASHON Note LASHON Note Notes: Spoke with pt and his regarding inpt rehab d/c options. Several IRs have accepted him. They would really like [facility] IR. Spoke with Jessika OATES and she said there may be a bed available Wednesday. Left msg for Greene at [facility] admissions. Received call from Nayan from [facility] IR - he requested updates. Sent via [employer]. D/C plan: Inpt Rehab when medically cleared Date Signed: 08/01/2018 10:02 AM Electronically Signed By:TYE Perkins
--- NOTE | 2018-08-01 12:37 | PDIAF ---
- Diagnosis Code Status: Full Code - Medication Management Discharge Medications: electronically signed and located in the Home Medication List. - Orders Services needed: Physical Therapy, Occupational Therapy Isolation Type: None Oxygen: 2 L NC has TOAN Diet Texture: Regular Texture Diet, Thin Liquids, Meds Whole w/Liquids Activity/Weight Bearing Restrictions: Jewitt brace while OOB Additional Instructions: Jewitt brace while OOB - Follow Up Care Current Providers and Referrals: Debi Buckner MD [Primary Care Provider] - As per Instructions Judith Connor DO [Doctor of Osteopathy] - (call for appointment in 3 weeks )
--- NOTE | 2018-08-01 14:32 | ASMTLACE ---
LACE Length of stay for Answers: 7-13 days current admission Acuity / Level of Answers: Yes Care: Did the patient have an inpatient admission? Comorbidities - select Answers: Other Notes: Factor V Leiden all that apply disease, renal lesion, # of Emergency department Answers: 3-4 visits in the last 6 months Score: 12 Date Signed: 08/01/2018 02:13 PM Electronically Signed By:TYE Perkins
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
== END 2018-08-01 14:45 | DRG 86 ==
LOC: EDUNIT# → F2N 16:45 → F3N 07-28 12:33
PROVIDERS: ADMIT Surgery; ATTEND Surgery
DX: S06.5X1A Traumatic subdural hemorrhage with loss of consciousness of 30 minutes or less, initial encounter (principal); S22.020A Wedge compression fracture of second thoracic vertebra, initial encounter for closed fracture; S22.31XA Fracture of one rib, right side, initial encounter for closed fracture; D68.2 Hereditary deficiency of other clotting factors; S06.2X1A Diffuse traumatic brain injury with loss of consciousness of 30 minutes or less, initial encounter; S42.114A Nondisplaced fracture of body of scapula, right shoulder, initial encounter for closed fracture; V17.0XXA Pedal cycle driver injured in collision with fixed or stationary object in nontraffic accident, initial encounter; Y93.55 Activity, bike riding; Y92.414 Local residential or business street as the place of occurrence of the external cause; R40.2412 Glasgow coma scale score 13-15, at arrival to emergency department; M48.061 Spinal stenosis, lumbar region without neurogenic claudication; E78.5 Hyperlipidemia, unspecified; F32.9 Major depressive disorder, single episode, unspecified; G47.33 Obstructive sleep apnea (adult) (pediatric); I25.10 Atherosclerotic heart disease of native coronary artery without angina pectoris; I71.4 Abdominal aortic aneurysm, without rupture; Z79.01 Long term (current) use of anticoagulants
CPT/HCPCS: 82435-PO; 82565-PO; 82947-PO; 84132-PO; 84295-PO; 84484-ER; 84520-PO; 85014-ER; 92507-GN; 92523-GN; 92526-GN; 92610-GN; 96365; 97112-GP; 97116-GP; 97163-GP; 97166-GO; 97530-GO; 97530-GP; 97535-GO; J1170; J1650; J2270; J3010; Q9967

== ENCOUNTER 2018-08-01 13:39 | Inpatient (IN) | payer OTHER ==
[2018-08-01] MEDS ORDERED: clonazePAM 0.5 MG TAB PO PRN (15:19)
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
[2018-08-01] MEDS: ROSUVASTATIN CALCIUM 10 MG TAB PO SCH (20:37)
[2018-08-01] MEDS: PREGABALIN 100 MG CAP PO SCH (20:38)
[2018-08-01] MEDS: DULoxetine 60 MG CAP PO SCH (20:38)
[2018-08-01] MEDS: hydrOXYzine HCL 10 MG TAB PO SCH (20:38)
[2018-08-01] MEDS: OLANZapine 2.5 MG TAB PO SCH (20:40)
[2018-08-02] MEDS: ACETAMINOPHEN 325 MG TAB PO PRN ×3 (04:28→17:54)
[2018-08-02 05:00] LABS: PLATELET COUNT 184 10^3/uL (150-400)
[2018-08-02] MEDS: hydrOXYzine HCL 10 MG TAB PO SCH ×2 (09:07→20:08)
[2018-08-02] MEDS: DULoxetine 60 MG CAP PO SCH ×2 (09:07→20:06)
[2018-08-02] MEDS: PREGABALIN 100 MG CAP PO SCH ×2 (09:07→20:07)
[2018-08-02] MEDS: ASPIRIN 81 MG CHEWABLE TAB PO SCH (09:07)
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
--- NOTE | 2018-08-02 12:52 | PDOREHIP ---
Admission [facility] - Admission - 3 Day Assessment Period Admission Date/Day 1: 08/01/18 Day 2: 08/02/18 Day 3: 08/03/18 - Active Diagnoses Comorbidities and Co-existing Conditions at Admission: 85110. None of the Above - Skin Conditions Unhealed Pressure Ulcer (1 or more/Stage 1 or >)-Admission: 0. No # Stage 1 Pressure Ulcers-Admission: 0 # Stage 2 Pressure Ulcers-Admission: 0 # Stage 3 Pressure Ulcers-Admission: 0 # Stage 4 Pressure Ulcers-Admission: 0 # Unstageable Pressure Ulcers (Non-remove Dress)-Admission: 0 # Unstageable Pressure Ulcers (Slough/Eschar)-Admission: 0 # Unstageable Pressure Ulcers (Deep Tissue Injury)-Admission: 0
[2018-08-02] MEDS: OLANZapine 2.5 MG TAB PO SCH (20:05)
[2018-08-02] MEDS: ROSUVASTATIN CALCIUM 10 MG TAB PO SCH (20:07)
[2018-08-03] MEDS: hydrOXYzine HCL 10 MG TAB PO SCH ×2 (08:51→20:08)
[2018-08-03] MEDS: PREGABALIN 100 MG CAP PO SCH ×2 (08:51→20:09)
[2018-08-03] MEDS: ASPIRIN 81 MG CHEWABLE TAB PO SCH (08:51)
[2018-08-03] MEDS: DULoxetine 60 MG CAP PO SCH ×2 (08:51→20:09)
[2018-08-03] MEDS ORDERED: BUPRENORPHINE TD SCH (09:00)
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
[2018-08-03] MEDS: ACETAMINOPHEN 325 MG TAB PO PRN (14:10)
[2018-08-03] MEDS: ICY HOT TP PRN (14:12)
[2018-08-03] MEDS: ROSUVASTATIN CALCIUM 10 MG TAB PO SCH (20:08)
[2018-08-03] MEDS: OLANZapine 2.5 MG TAB PO SCH (20:09)
[2018-08-03] MEDS ORDERED: HYDROmorphONE/DILAUDID 2 MG TAB PO PRN (22:36)
[2018-08-03] MEDS ORDERED: fentaNYL 12 MCG PATCH TD SCH (22:45)
[2018-08-04] MEDS: ICY HOT TP PRN ×3 (07:25→17:22)
[2018-08-04] MEDS: hydrOXYzine HCL 10 MG TAB PO SCH ×2 (07:29→19:56)
[2018-08-04] MEDS: PREGABALIN 100 MG CAP PO SCH ×2 (07:29→19:56)
[2018-08-04] MEDS: ACETAMINOPHEN 325 MG TAB PO PRN (07:29)
[2018-08-04] MEDS: ASPIRIN 81 MG CHEWABLE TAB PO SCH (07:30)
[2018-08-04] MEDS: DULoxetine 60 MG CAP PO SCH ×2 (07:30→19:57)
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
[2018-08-04] MEDS: ROSUVASTATIN CALCIUM 10 MG TAB PO SCH (19:56)
[2018-08-04] MEDS: OLANZapine 2.5 MG TAB PO SCH (19:56)
[2018-08-05] MEDS: DULoxetine 60 MG CAP PO SCH ×2 (07:22→20:29)
[2018-08-05] MEDS: ASPIRIN 81 MG CHEWABLE TAB PO SCH (07:22)
[2018-08-05] MEDS: hydrOXYzine HCL 10 MG TAB PO SCH ×2 (07:23→20:28)
[2018-08-05] MEDS: PREGABALIN 100 MG CAP PO SCH ×2 (07:23→20:29)
[2018-08-05] MEDS: ICY HOT TP PRN ×2 (08:09→17:06)
[2018-08-05] MEDS ORDERED: SENNOSIDES 1 TAB PO PRN (09:52)
[2018-08-05] MEDS ORDERED: BISACODYL 10 MG SUPP PR PRN (09:52)
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
--- NOTE | 2018-08-05 13:21 | PDOREHIP ---
Admission [facility] - Admission - 3 Day Assessment Period Admission Date/Day 1: 08/01/18 Day 2: 08/02/18 Day 3: 08/03/18 - Active Diagnoses Comorbidities and Co-existing Conditions at Admission: 05583. None of the Above Discharge [facility] - Discharge - 3 Day Assessment Period 2 Days Prior to Anticipated Discharge Date: 08/04/18 1 Day Prior to Anticipated Discharge Date: 08/05/18 Anticipated Discharge Date: 08/06/18 - Discharge Skin Conditions Unhealed Pressure Ulcer (1 or more/Stage 1 or >)-Discharge: 0. No # Stage 1 Pressure Ulcers-Discharge: 0 # Stage 2 Pressure Ulcers-Discharge: 0 # of These Stage 2 Pressure Ulcers Present on Admission: 0 # Stage 3 Pressure Ulcers-Discharge: 0 # of These Stage 3 Pressure Ulcers Present on Admission: 0 # Stage 4 Pressure Ulcers-Discharge: 0 # of These Stage 4 Pressure Ulcers Present on Admission: 0 # Unstageable Pressure Ulcers (Non-remove Dress)-Discharge: 0 # These Unstageable Pressure Ulcers (NRD)-Present on Admit: 0 # Unstageable Pressure Ulcers (Slough/Eschar)-Discharge: 0 # These Unstageable Pressure Ulcers(Slough) Present on Admit: 0 # Unstageable Pressure Ulcers (Deep Tissue Injury)-Discharge: 0 # These Unstageable Pressure Ulcers (DTI) Present on Admit: 0
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
[2018-08-05] MEDS: ACETAMINOPHEN 325 MG TAB PO PRN (17:09)
[2018-08-05] MEDS: OLANZapine 2.5 MG TAB PO SCH (20:28)
[2018-08-05] MEDS: ROSUVASTATIN CALCIUM 10 MG TAB PO SCH (20:29)
[2018-08-06 07:49] VITALS: BP 137/85
[2018-08-06] MEDS: ICY HOT TP PRN (07:51)
[2018-08-06] MEDS: DULoxetine 60 MG CAP PO SCH (08:19)
[2018-08-06] MEDS: PREGABALIN 100 MG CAP PO SCH (08:19)
[2018-08-06] MEDS: ASPIRIN 81 MG CHEWABLE TAB PO SCH (08:19)
[2018-08-06] MEDS: hydrOXYzine HCL 10 MG TAB PO SCH (08:19)
[2018-08-06] MEDS ORDERED: POLYETHYLENE GLYCOL 3350 17 GM PKT PO SCH (09:00)
[2018-08-06] MEDS: ACETAMINOPHEN 325 MG TAB PO PRN (09:41)
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
== END 2018-08-06 11:51 | disposition home or self-care (01) | DRG 945 ==
LOC: F3E 14:30
PROVIDERS: ADMIT Internal Medicine Hospice and Palliative Medicine; ATTEND Internal Medicine Hospice and Palliative Medicine
PROC: F07M3ZZ Motor Function Treatment of Musculoskeletal System - Whole Body (ICD-10-PCS; principal; 2018-08-01)
PROC: F0636ZZ Communicative/Cognitive Integration Skills Treatment of Neurological System - Whole Body (ICD-10-PCS; principal; 2018-08-01)
PROC: F08Z7ZZ Vocational Activities and Functional Community or Work Reintegration Skills Treatment (ICD-10-PCS; principal; 2018-08-01)
DX: S06.6X1D Traumatic subarachnoid hemorrhage with loss of consciousness of 30 minutes or less, subsequent encounter (principal); S42.114D Nondisplaced fracture of body of scapula, right shoulder, subsequent encounter for fracture with routine healing; S22.31XD Fracture of one rib, right side, subsequent encounter for fracture with routine healing; S22.060D Wedge compression fracture of T7-T8 vertebra, subsequent encounter for fracture with routine healing; S12.601D Unspecified nondisplaced fracture of seventh cervical vertebra, subsequent encounter for fracture with routine healing; V18.0XXD Pedal cycle driver injured in noncollision transport accident in nontraffic accident, subsequent encounter; D68.51 Activated protein C resistance; N28.1 Cyst of kidney, acquired; M48.061 Spinal stenosis, lumbar region without neurogenic claudication; F41.9 Anxiety disorder, unspecified; F32.9 Major depressive disorder, single episode, unspecified; K22.70 Barrett's esophagus without dysplasia; K21.9 Gastro-esophageal reflux disease without esophagitis; E78.5 Hyperlipidemia, unspecified; Q21.1 Atrial septal defect; G47.33 Obstructive sleep apnea (adult) (pediatric); I71.4 Abdominal aortic aneurysm, without rupture; I25.10 Atherosclerotic heart disease of native coronary artery without angina pectoris
CPT/HCPCS: 92507-GN; 92523-GN; 97110-GO; 97110-GP; 97112-GP; 97116-GP; 97162-GP; 97166-GO; 97530-GO; 97530-GP; 97535-GO; 99366-GN; 99366-GO